=== PATIENT | female | born 1990 | race Hispanic/Latino ===

== ENCOUNTER 2018-08-02 19:08 | Emergency (ER) | payer BC, SELFPAY ==
[2018-08-02 19:45] LABS: Urine Bacteria 20-50 /HPF (<20); Urine Culture Reflex Order REFLEXED; Urine RBC <5 /HPF (NONE SEEN)
[2018-08-02 19:54] LABS: Absolute Lymphocytes (CBC) 2.1 K/uL (0.7-4.9); Absolute Monocytes 0.4 K/uL (0.1-1.3); Absolute Neutrophil 5.7 K/uL (1.8-8.0); Basophils % 0.1 % (0-1.3); Eosinophils % 0.9 % (0-4.4); Hematocrit 38.6 % (36.0-45.0); Lymphocytes % 25.5 % (15.3-44.8); MCH 29.6 pg (27.0-35.0); MCV 86.5 fL (80-100); MPV 8.3 fL (7.6-11.3); Monocytes % 5.1 % (3.3-12.3); RBC Red Blood Cell Count 4.47 M/uL (3.86-4.86)
[2018-08-02 20:25] LABS: BUN Blood Urea Nitrogen 10 mg/dL (7-18); Bicarbonate 25 mmol/L (21-32); Glucose Level 87 mg/dL (74-106); HCG, Quantitative 94809 mIU/mL (1-3); Potassium 3.3 mmol/L (3.5-5.1); Sodium Level 138 mmol/L (136-145)
[2018-08-02 20:26] LABS: Urine Blood 2+ (NEG); Urine Glucose NEGATIVE (NEG); Urine Protein NEGATIVE (NEG); Urine Specific Gravity 1.025 (1.005-1.030); Urine pH 6.5 (5.0-7.0)
--- NOTE | 2018-08-02 20:59 | RAD REPORT ---
EXAM DESCRIPTION: US - Transvaginal OB - 08/02/2018 8:45 pm CLINICAL HISTORY: ABD CRAMPING, COMPARISON: OBSTETRICAL COMPLETE dated 07/27/2015 FINDINGS: A single gestational sac is seen within the uterus. The shape of the sac is within normal limits for gestational age. Within the sac is a single pole with crown-rump length of 18 mm, co rrelating to estimated gestational age of 8 weeks 3 days. Estimated date of delivery is 03/11/2019. Heart rate is 160 BPM.. The placenta is not yet developed due to early gestational age. The maternal adnexa and ovaries are within normal limits. Normal Doppler blood flow was demonstrated to both ovaries. IMPRESSION: Single live early intrauterine gestation with estimated gestational age of 8 weeks 3 day s, KAREN 03/11/2019. No unusual or unexpected finding.
--- NOTE | 2018-08-02 21:04 | ER ---
Nurse's Notes [facility] Name: Salma Kidd Age: 28 yrs Sex: Female : 1990 Arrival Date: 08/02/2018 Time: 19:10 Bed 30 Private MD: Tahir Parekh B Diagnosis: Unspecified infection of urinary tract in Presentation: 08/02 19:16 Presenting complaint: Patient states: lower back pain and light vaginal bleeding since la1 yesterday. Transition of care: patient was not received from another setting of care. Onset of symptoms was August 02, 2018. Risk Assessment: Do you want to hurt yourself or someone else? Patient reports no desire to harm self or others. Initial Sepsis Screen: Does the patient meet any 2 criteria? No. Patient's initial sepsis screen is negative. Does the patient have a suspected source of infection? No. Patient's initial sepsis screen is negative. Care prior to arrival: None. 19:16 Method Of Arrival: Ambulatory la1 19:16 Acuity: TICO 3 la1 Historical: - Allergies: 19:17 No Known Allergies; la1 - PMHx: 19:17 None; la1 - PSHx: 19:17 Hernia repair; la1 - Immunization history:: Adult Immunizations up to date. - Social history:: Smoking status: Patient/guardian denies using tobacco. - Ebola Screening: : No symptoms or risks identified at this time. Screenin:37 Abuse screen: Denies threats or abuse. Denies injuries from another. Nutritional kr2 screening: No deficits noted. Tuberculosis screening: No symptoms or risk factors identified. Fall Risk None identified. Assessment: 19:35 General: Appears in no apparent distress. comfortable, well groomed, well developed, kr2 well nourished, Behavior is calm, cooperative, appropriate for age. Pain: Complains of pain in lower back Pain does not radiate. Pain currently is 4 out of 10 on a pain scale. Quality of pain is described as aching, crampy, Is continuous, Alleviated by rest. Neuro: Level of Consciousness is awake, alert, obeys commands, Oriented to person, place, time, situation, Appropriate for age. Cardiovascular: Capillary refill < 3 seconds in bilateral fingers Patient's skin is warm and dry. Respiratory: Airway is patent Respiratory effort is even, unlabored, Respiratory pattern is regular, symmetrical. GI: Abdomen is flat, non-distended, Bowel sounds present X 4 quads. Abd is soft and non tender X 4 quads. : Urine is clear, Reports vaginal bleeding that is small smears of blood when wiping. Derm: Skin is intact, is healthy with good turgor, Skin is pink, warm \T\ dry. Musculoskeletal: Circulation, motion, and sensation intact. 20:30 Reassessment: Patient appears in no apparent distress at this time. Patient and/or kr2 family updated on plan of care and expected duration. Pain level reassessed. Patient is alert, oriented x 3, equal unlabored respirations, skin warm/dry/pink. Vital Signs: 19:17 BP 114 / 56; Pulse 75; Resp 16; Temp 98.4; Pulse Ox 98% on R/A; Weight 79.38 kg; Height la1 5 ft. 6 in. (167.64 cm); 20:55 BP 112 / 67; Pulse 73; Resp 16; Pulse Ox 100% on R/A; kr2 19:17 Body Mass Index 28.25 (79.38 kg, 167.64 cm) la1 ED Course: 19:10 Patient arrived in ED. al2 19:11 Tahir Parekh MD is Private Physician. al2 19:17 Triage completed. la1 19:18 Arm band placed on right wrist. la1 19:21 Darien Johnson MD is Attending Physician. [facility] 19:21 Nessa Whittaker FNP-C is PHCP. snw 19:24 Nessa Whittaker FNP-C is PHCP. snw 19:34 Lida Ambrocio, BRIANNE is Primary Nurse. kr2 19:38 Patient has correct armband on for positive identification. Placed in gown. Bed in low kr2 position. Call light in reach. Side rails up X 1. Pulse ox on. NIBP on. Door closed. Warm blanket given. Head of bed elevated. 19:40 Inserted saline lock: 20 gauge in right antecubital area, using aseptic technique. jp3 Blood collected. 19:40 Initial lab(s) drawn, by me, sent to lab. Urine collected: clean catch specimen, clear, jp3 matt colored, T\T\S collected, blood band applied to patient. 19:44 Urine Microscopic Only Sent. jp3 19:44 Quantitative Hcg Sent. jp3 19:44 Abo/rh Typing Sent. jp3 19:44 Basic Metabolic Panel Sent. jp3 19:44 CBC with Diff Sent. jp3 20:45 Ultrasound completed. Patient tolerated well. sg3 20:45 US Transvaginal Ob In Process Unspecified. EDMS 21:02 Tahir Parekh MD is Referral Physician. snw 21:06 No provider procedures requiring assistance completed. IV discontinued, intact, kr2 bleeding controlled, No redness/swelling at site. Pressure dressing applied. Administered Medications: 21:02 Drug: Rocephin 1 grams Route: IV; Rate: calculated rate; Site: right antecubital; kr2 21:13 Follow up: Response: No adverse reaction; IV Status: Completed infusion kr2 Outcome: 21:03 Discharge ordered by . snw 21:06 Discharged to home ambulatory, with family. kr2 21:06 Condition: good 21:06 Discharge instructions given to patient, Instructed on discharge instructions, follow up and referral plans. medication usage, Demonstrated understanding of instructions, follow-up care, medications, Prescriptions given X 2. 21:14 Patient left the ED. kr2 Signatures: Dispatcher [employer] EDWI Darien Johnson MD MD cha Therrien, Shelly, ROOM SERVICE BELLHOP-C ROOM SERVICE BELLHOP-Csnw Sha Fleming, BRIANNE RN Lida Hall RN RN andrew2 Anika Greer 3 Mag Jaffe Jacob jp3
--- NOTE | 2018-08-02 21:04 | EDPHYS ---
Physician Documentation [facility] Name: Salma Kidd Age: 28 yrs Sex: Female : 1990 Arrival Date: 08/02/2018 Time: 19:10 Bed 30 Private MD: Tahir Parekh B ED Physician Darien Johnson HPI: 08/02 20:55 This 28 yrs old Female presents to ER via Ambulatory with complaints of snw Vaginal Bleeding, 8 weeks preg. 20:55 The patient presents with vaginal bleeding that is light, spotting. Onset: The snw symptoms/episode began/occurred suddenly. Modifying factors:. Associated signs and symptoms: Pertinent positives: abd cramping. The patient has not experienced similar symptoms in the past. The patient has been recently seen by a physician:. , no prior problems. Historical: - Allergies: 19:17 No Known Allergies; la1 - PMHx: 19:17 None; la1 - PSHx: 19:17 Hernia repair; la1 - Immunization history:: Adult Immunizations up to date. - Social history:: Smoking status: Patient/guardian denies using tobacco. - Ebola Screening: : No symptoms or risks identified at this time. ROS: 20:53 Constitutional: Negative for fever, chills, and weight loss, Eyes: Negative for injury, snw pain, redness, and discharge, ENT: Negative for injury, pain, and discharge, Neck: Negative for injury, pain, and swelling, Cardiovascular: Negative for chest pain, palpitations, and edema, Respiratory: Negative for shortness of breath, cough, wheezing, and pleuritic chest pain, Back: Negative for injury and pain, : Negative for injury, bleeding, discharge, and swelling, MS/Extremity: Negative for injury and deformity, Skin: Negative for injury, rash, and discoloration, Neuro: Negative for headache, weakness, numbness, tingling, and seizure, Psych: Negative for depression, anxiety, suicide ideation, homicidal ideation, and hallucinations. 20:53 Abdomen/GI: Positive for abdominal pain, abdominal cramps, vaginal spotting. Exam: 20:53 Constitutional: This is a well developed, well nourished patient who is awake, alert, snw and in no acute distress. Head/Face: Normocephalic, atraumatic. Eyes: Pupils equal round and reactive to light, extra-ocular motions intact. Lids and lashes normal. Conjunctiva and sclera are non-icteric and not injected. Cornea within normal limits. Periorbital areas with no swelling, redness, or edema. ENT: Nares patent. No nasal discharge, no septal abnormalities noted. Tympanic membranes are normal and external auditory canals are clear. Oropharynx with no redness, swelling, or masses, exudates, or evidence of obstruction, uvula midline. Mucous membranes moist. Neck: Trachea midline, no thyromegaly or masses palpated, and no cervical lymphadenopathy. Supple, full range of motion without nuchal rigidity, or vertebral point tenderness. No Meningismus. Chest/axilla: Normal chest wall appearance and motion. Nontender with no deformity. No lesions are appreciated. Cardiovascular: Regular rate and rhythm with a normal S1 and S2. No gallops, murmurs, or rubs. Normal PMI, no JVD. No pulse deficits. Respiratory: Lungs have equal breath sounds bilaterally, clear to auscultation and percussion. No rales, rhonchi or wheezes noted. No increased work of breathing, no retractions or nasal flaring. Abdomen/GI: Soft, non-tender, with normal bowel sounds. No distension or tympany. No guarding or rebound. No evidence of tenderness throughout. Back: No spinal tenderness. No costovertebral tenderness. Full range of motion. Skin: Warm, dry with normal turgor. Normal color with no rashes, no lesions, and no evidence of cellulitis. MS/ Extremity: Pulses equal, no cyanosis. Neurovascular intact. Full, normal range of motion. Neuro: Awake and alert, GCS 15, oriented to person, place, time, and situation. Cranial nerves II-XII grossly intact. Motor strength 5/5 in all extremities. Sensory grossly intact. Cerebellar exam normal. Normal gait. Psych: Awake, alert, with orientation to person, place and time. Behavior, mood, and affect are within normal limits. Vital Signs: 19:17 BP 114 / 56; Pulse 75; Resp 16; Temp 98.4; Pulse Ox 98% on R/A; Weight 79.38 kg; Height la1 5 ft. 6 in. (167.64 cm); 20:55 BP 112 / 67; Pulse 73; Resp 16; Pulse Ox 100% on R/A; kr2 19:17 Body Mass Index 28.25 (79.38 kg, 167.64 cm) la1 MDM: 19:21 Patient medically screened. manuel 21:04 Data reviewed: vital signs, nurses notes. Data interpreted: Pulse oximetry: on room air snw is 100 %. Counseling: I had a detailed discussion with the patient and/or guardian regarding: the historical points, exam findings, and any diagnostic results supporting the discharge/admit diagnosis, lab results, radiology results, the need for outpatient follow up, to return to the emergency department if symptoms worsen or persist or if there are any questions or concerns that arise at home. Special discussion: Based on the history and exam findings, there is no indication for further emergent testing or inpatient evaluation. I discussed with the patient/guardian the need to see the OB Gyne specialist for further evaluation of the symptoms. I discussed with the patient/guardian the need to see the primary care provider for further evaluation of the symptoms. 08/02 19:14 Order name: Quantitative Hcg; Complete Time: 20:27 kb 08/02 19:14 Order name: Abo/rh Typing; Complete Time: 20:17 kb 08/02 19:14 Order name: Basic Metabolic Panel; Complete Time: 20:27 kb 08/02 19:14 Order name: CBC with Diff; Complete Time: 20:17 kb 08/02 19:24 Order name: Urine Microscopic Only; Complete Time: 19:49 snw 08/02 19:34 Order name: Urine Dipstick--Ancillary (enter results); Complete Time: 20:27 mw2 08/02 19:14 Order name: Urine Test (obtain specimen); Complete Time: 19:33 kb 08/02 19:14 Order name: IV Saline Lock; Complete Time: 19:33 kb 08/02 19:14 Order name: Labs collected and sent; Complete Time: 19:33 kb 08/02 19:14 Order name: NPO; Complete Time: 19:33 kb 08/02 19:27 Order name: US Transvaginal Ob; Complete Time: 21:00 snw 08/02 19:34 Order name: Urine --Ancillary (enter results); Complete Time: 20:27 mw2 08/02 19:47 Order name: Urine Culture EDMS 08/02 19:14 Order name: Urine Dipstick-Ancillary (obtain specimen); Complete Time: 19:33 kb Administered Medications: 21:02 Drug: Rocephin 1 grams Route: IV; Rate: calculated rate; Site: right antecubital; kr2 21:13 Follow up: Response: No adverse reaction; IV Status: Completed infusion kr2 Disposition: 08/03 07:01 Co-signature as Attending Physician, Darien Johnson MD I agree with the assessment and manuel plan of care. Disposition: 08/02/18 21:03 Discharged to Home. Impression: Unspecified infection of urinary tract in . - Condition is Stable. - Discharge Instructions: and Urinary Tract Infection. - Prescriptions for Augmentin 875- 125 mg Oral Tablet - take 1 tablet by ORAL route every 12 hours for 10 days; 20 tablet. Vitamin 27- 0.8 mg Oral Tablet - take 1 tablet by ORAL route once daily; 30 tablet. - Medication Reconciliation Form, Thank You Letter, Antibiotic Education, Prescription Opioid Use form. - Follow up: Tahir Parekh MD; When: 2 - 3 days; Reason: Recheck today's complaints, Continuance of care, Re-evaluation by your physician. Follow up: Emergency Department; When: As needed; Reason: Worsening of condition. Signatures: Dispatcher [employer] Addie Stockton, MAYE-C MAYE-Darien Neves MD MD cha Therrien, Shelly, FNP-C SUPERVISOR [employer] TEXTILE-Sha Guzman RN RN la1 Lida Ambrocio RN RN kr2 Corrections: (The following items were deleted from the chart) 08/02 21:14 21:03 08/02/2018 21:03 Discharged to Home. Impression: Unspecified infection of urinary kr2 tract in . Condition is Stable. Forms are Medication Reconciliation Form, Thank You Letter, Antibiotic Education, Prescription Opioid Use. Follow up: Tahir Parekh; When: 2 - 3 days; Reason: Recheck today's complaints, Continuance of care, Re-evaluation by your physician. Follow up: Emergency Department; When: As needed; Reason: Worsening of condition. snw
[2018-08-02] MEDS ORDERED: CEFTRIAXONE/SWI 1gm 1 GM/10 ML SYR ONE (21:05)
[2018-08-02 21:35] VITALS: TEMP 98.4
[2018-08-02 21:36] VITALS: BP 112/67; O2SAT 100
== END 2018-08-02 21:14 | disposition home or self-care (01) ==
LOC: ER 19:08
DX: O23.41 Unspecified infection of urinary tract in pregnancy, first trimester (principal); Z3A.08 8 weeks gestation of pregnancy
CPT/HCPCS: 36415; 76817; 80048; 81003; 81015; 81025; 84702; 85025; 86900; 86901; 87086; 87088; 96374; 99284; J0696

== ENCOUNTER 2019-03-04 01:54 | Inpatient (IN) | payer BC ==
[2019-03-04] MEDS ORDERED: BUTORPHANOL 1 MG/ML INJ IV PRN (04:32)
[2019-03-04] MEDS ORDERED: PROMETHAZINE 25 MG/ML VIAL IM PRN (04:32)
[2019-03-04] MEDS ORDERED: MEPERIDINE HCL 25 MG/0.5 ML IV PRN (04:32)
[2019-03-04] MEDS ORDERED: METHYLERGONOVINE 0.2MG/ML AMP IM PRN (04:32)
[2019-03-04] MEDS ORDERED: CARBOPROST TROME 250 MCG/ML IM PRN (04:32)
[2019-03-04] MEDS ORDERED: Ringers Lactate 1,000 ML IV PRN (04:32)
[2019-03-04 04:50] LABS: RPR Titer ND
[2019-03-04 04:53] LABS: Urine Appearance CLEAR; Urine Bilirubin NEGATIVE (NEG); Urine Blood NEGATIVE (NEG); Urine Color YELLOW; Urine Glucose NEGATIVE (NEG); Urine Protein NEGATIVE (NEG); Urine Urobilinogen 0.2 mg/dL (0.2-1.0)
[2019-03-04 04:54] LABS: Absolute Lymphocytes (CBC) 1.5 K/uL (0.7-4.9); Basophils % 0.3 % (0-1.3); Eosinophils % 0.7 % (0-4.4); Hematocrit 34.5 % (36.0-45.0); Lymphocytes % 21.9 % (15.3-44.8); Monocytes % 5.9 % (3.3-12.3); RBC Red Blood Cell Count 4.27 M/uL (3.86-4.86); Urine Microscopic Reflex ORDER UMIC
[2019-03-04] MEDS ORDERED: OXYTOCIN/LR 20 UNIT/1,000 ML BAG IV SCH ×2 (05:00→09:00)
[2019-03-04] MEDS ORDERED: Ringers Lactate 1,000 ML IV SCH (05:00)
[2019-03-04 05:31] LABS: Urine Bacteria 20-50 /HPF (<20); Urine Culture Reflex Order REFLEXED; Urine RBC NONE SEEN /HPF (NONE SEEN)
[2019-03-04 05:42] VITALS: BMI 31.4
[2019-03-04] MEDS ORDERED: LIDOCAINE 1% MPF 30 ML VIAL ONE (08:45)
[2019-03-04] MEDS ORDERED: Oxycodone HCl/Acetaminophen 1 TAB TAB PO PRN (08:47)
[2019-03-04] MEDS ORDERED: ACETAMINOPHEN 500 MG TAB PO PRN (08:47)
[2019-03-04] MEDS ORDERED: DOCUSATE NA/SENNA CONC 1 TAB PO PRN (08:47)
[2019-03-04] MEDS ORDERED: DIPHENHYDRAMINE 25 MG TAB/CAP PO PRN (08:47)
[2019-03-04] MEDS ORDERED: BISACODYL 10 MG RECTAL SUPP RECT PRN (08:47)
[2019-03-04] MEDS: METHYLERGONOVINE 0.2 MG TAB PO PRN ×2 (11:00→15:30)
[2019-03-04] MEDS: Oxycodone HCl/Acetaminophen 1 TAB TAB PO PRN ×2 (11:00→16:00)
[2019-03-04] MEDS: IBUPROFEN 200 MG TAB PO PRN ×2 (13:30→22:46)
[2019-03-04 14:41] LABS: RPR (Rapid Plasma Reagin) NON-REACT (NON-REACT)
--- NOTE | 2019-03-04 14:47 | OP ---
Surgeon: Tahir Parekh MD This is a 28-year-old, 3, para 2. History of macrosomia, mild shoulder dystocia with l ast . Rh positive. Immune to Rubella. Negative beta strep screen. Two and a half to 3 cm on admission. Rupture of membranes at 3.5 cm. Clear fluid. The patient went rapidly to complete w ithin an hour and a half or less, was complete and on the perineum, second stage of 10-15 minutes. S pontaneous vaginal delivery of an estimated 9-pound plus male infant. Shoulder type cord. Apgars 8 and 9. Second-degree midline laceration, repaired with 2-0 chromic. Schultze delivery of the placen ta, which was inspected and noted be intact and normal. Mild uterine hypotonus, 0.2 mg of Methergine IM, IV drip Pitocin, massage. Estimated blood loss at this point, 400-450 cc. The patient had 1 mg of Stadol and 25 mg of Phenergan during the labor. Tolerated all procedures well. Final Diagnoses: Term uterine , vaginal delivery, mild uterine hypotonus. CONSTANTINEC/MODL Voice ID: [id number] Report ID: [id number]
[2019-03-05] MEDS: Oxycodone HCl/Acetaminophen 1 TAB TAB PO PRN (06:30)
--- NOTE | 2019-03-05 08:00 | PREOPHP ---
Date of Admission: 03/04/2019 This is a 28-year-old, 3, para 2, history of macrosomia, with the last 9 pound 15 o unce child with mild shoulder dystocia. This has been discussed with the patient and numerou s times during the . They wish to proceed with vaginal delivery. She is Rh positive, immun e to Rubella. Negative beta strep screen. She is now 3.5 cm, 50% to 60% effaced, vertex, but still posterior, keren regularly. Baby looks good. Rupture of membranes, clear fluid. Labor talk g iven. Anticipate more rapid progress once she gets to about 5 cm. Pros and cons of epidural anesthe carmita have been discussed before. Hopefully, she can go natural so that we can have all the pushing po wer that we can generate at the time of delivery, but if she wants an epidural we will comply. ELE/DEANDRE Voice ID: [id number]
[2019-03-05 11:59] VITALS: BP 116/72; TEMP 96.7
--- NOTE | 2019-03-05 13:39 | DS ---
A 28-year-old 3, para 2, at 39 weeks. History of macrosomia with last baby 9 pounds 15 ounce s. Admitted for labor induction. At 3 cm rupture of membranes was performed. The patient had 1 mg of Stadol and 25 mg of Phenergan IM. Stadol IV. Within an hour and 20 minutes, she was complete and on the perineum. Delivered spontaneously and easily of an 8-pound and 14-ounce male , shoulde r type of cord. Apgars 8 and 9. Small midline second-degree laceration repaired with 2-0 chromic un joleen local infiltration. Schultze delivery of the placenta, which was inspected and noted to be intac t and normal. Mild uterine hypotonus. IV drip Pitocin, massage and 0.2 mg of Methergine IM. Estima silvano blood loss 400-450 cc. Rh positive, immune to Rubella. Negative beta strep screen. ; afebrile, ambulating and voiding. Lochia is normal. She is having cramping of course when she is b reast feeding. Full instructions given. To report any temperature elevation of 100 degrees or more, severe pain, heavy bleeding, or any other type of abnormalities. They need to talk to the pediatric harry this morning and after they are cleared for dismissal they can go. I have given her prescription for tramadol, although she may elect to take Motrin instead. Final Diagnoses: Term intrauterine , 39 weeks. Vaginal delivery. Mild uterine hypotonus. ELE/DEANDRE Voice ID: [id number] Report ID: [id number]
[2019-03-07 04:36] LABS: HBsAG Nonreactive (Nonreactive)
== END 2019-03-05 13:45 | disposition home or self-care (01) | DRG 807 ==
LOC: 2ND-WC 04:10
PROVIDERS: ADMIT Specialist; ATTEND Specialist
PROC: 10E0XZZ Delivery of Products of Conception, External Approach (ICD-10-PCS; principal; 2019-03-04)
PROC: 0KQM0ZZ Repair Perineum Muscle, Open Approach (ICD-10-PCS; 2019-03-04)
PROC: 3E033VJ Introduction of Other Hormone into Peripheral Vein, Percutaneous Approach (ICD-10-PCS; 2019-03-04)
DX: O36.63X0 Maternal care for excessive fetal growth, third trimester, not applicable or unspecified (principal); Z37.0 Single live birth; Z3A.39 39 weeks gestation of pregnancy; O70.1 Second degree perineal laceration during delivery; O62.2 Other uterine inertia
CPT/HCPCS: 36415; 81003; 81015; 85025; 86592; 86901; 87086; 87088; 87340; J0595; J2175; J2210; J2550; J2590

== ENCOUNTER 2020-07-29 02:31 | Emergency (ER) | payer BC ==
[2020-07-29] MEDS ORDERED: FAMOTIDINE 20 MG/2 ML VIAL IV ONE (03:08)
[2020-07-29] MEDS ORDERED: MORPHINE 2 MG/ML SYR ONE (03:08)
[2020-07-29] MEDS ORDERED: ONDANSETRON 4 MG/2 ML VIAL ONE (03:08)
[2020-07-29 03:20] LABS: Absolute Lymphocytes (CBC) 2.7 K/uL (0.7-4.9); Basophils % 0.3 % (0-1.3); Hematocrit 41.7 % (36.0-45.0); Lymphocytes % 30.9 % (15.3-44.8); MPV 8.5 fL (7.6-11.3); RBC Red Blood Cell Count 4.67 M/uL (3.86-4.86)
[2020-07-29 03:24] LABS: Urine Blood 2+ (NEG); Urine Glucose NEGATIVE (NEG); Urine Protein NEGATIVE (NEG); Urine Specific Gravity 1.025 (1.005-1.030)
[2020-07-29 03:34] LABS: ALT/SGPT 40 U/L (12-78); AST/SGOT 43 U/L (15-37); Albumin 4.4 g/dL (3.4-5.0); Alkaline Phosphatase 90 U/L (45-117); BUN Blood Urea Nitrogen 14 mg/dL (7-18); Bicarbonate 31 mmol/L (21-32); Bilirubin Direct 0.2 mg/dL (0-0.2); Bilirubin Total 0.5 mg/dL (0.2-1.0); Glucose Level 102 mg/dL (74-106); Lipase 75 U/L (73-393); Magnesium 2.3 mg/dL (1.8-2.4); NT PRO-BNP 14 pg/mL (<125); Potassium 3.2 mmol/L (3.5-5.1); Protein, Total 8.7 g/dL (6.4-8.2); Sodium Level 142 mmol/L (136-145); Troponin (Emerg Dept Use Only) < 0.02 ng/mL (0.0-0.045)
--- NOTE | 2020-07-29 08:30 | ER ---
Nurse's Notes [facility] Name: Salma Kidd Age: 30 yrs Sex: Female : 1990 Arrival Date: 07/29/2020 Time: 02:33 Bed 5 Private MD: Diagnosis: Upper abdominal pain, unspecified Presentation: 07/29 02:41 Chief complaint: Patient states: Reports she started having epigastric pain that wraps ea around and goes to her back, reports it started around 2 AM. Coronavirus screen: At this time, the client does not indicate any symptoms associated with coronavirus-19. Ebola Screen: No symptoms or risks identified at this time. Initial Sepsis Screen: Does the patient meet any 2 criteria? No. Patient's initial sepsis screen is negative. Does the patient have a suspected source of infection? No. Patient's initial sepsis screen is negative. Risk Assessment: Do you want to hurt yourself or someone else? Patient reports no desire to harm self or others. Onset of symptoms was July 29, 2020. 02:41 Method Of Arrival: Ambulatory ea 02:41 Acuity: TICO 3 ea Triage Assessment: 02:44 General: Appears uncomfortable, Behavior is appropriate for age. Pain: Complains of ea pain in epigastric area Pain radiates to back. Neuro: Level of Consciousness is awake, alert, obeys commands, Oriented to person, place, time, situation. Historical: - Allergies: 02:44 No Known Allergies; ea - Home Meds: 02:44 None [Active]; ea - PMHx: 02:44 None; ea - PSHx: 02:44 Hernia repair; ea - Immunization history:: Adult Immunizations up to date. - Social history:: Smoking status: Patient denies any tobacco usage or history of. Screenin:42 Abuse screen: Denies threats or abuse. Denies injuries from another. Nutritional mg2 screening: No deficits noted. Tuberculosis screening: No symptoms or risk factors identified. Fall Risk IV access (20 points). Assessment: 02:43 General: Appears in no apparent distress. comfortable, Behavior is calm, cooperative. mg2 Pain: Complains of pain in epigastric Pain radiates to back Pain began gradually. Neuro: Level of Consciousness is awake, alert, obeys commands, Oriented to person, place, time, situation. Cardiovascular: Capillary refill < 3 seconds Patient's skin is warm and dry. Respiratory: Airway is patent Respiratory effort is even, unlabored, Respiratory pattern is regular, symmetrical. GI: Reports epigastric pain. : No signs and/or symptoms were reported regarding the genitourinary system. EENT: No signs and/or symptoms were reported regarding the EENT system. Derm: Skin is intact, is healthy with good turgor, Skin is pink, warm \T\ dry. normal. Musculoskeletal: Circulation, motion, and sensation intact. Capillary refill < 3 seconds. 03:30 Reassessment: Patient and/or family updated on plan of care and expected duration. Pain ea level reassessed. Patient is alert, oriented x 3, equal unlabored respirations, skin warm/dry/pink. 04:44 Reassessment: Patient appears in no apparent distress at this time. Patient and/or mg2 family updated on plan of care and expected duration. Pain level reassessed. Patient is alert, oriented x 3, equal unlabored respirations, skin warm/dry/pink. 05:50 Reassessment: Patient and/or family updated on plan of care and expected duration. Pain ea level reassessed. Patient is alert, oriented x 3, equal unlabored respirations, skin warm/dry/pink. 06:12 Reassessment: Patient and/or family updated on plan of care and expected duration. Pain ea level reassessed. Patient is alert, oriented x 3, equal unlabored respirations, skin warm/dry/pink. Awaiting on CT results. 07:00 Reassessment: RECD REPORT FROM MARIA ANTONIA DECKER. 30YO HF P/W CP AND SOB. ALL CURRENT ORDERS bp COMPLETED. REPEAT TROP IN PROCESS FOR DISPO. 08:35 Reassessment: U/S UNAVAILABLE. PT D/C HOME AMBULATORY, DX WITH NONSPECIFIC ABDOMINAL bp PAIN. Vital Signs: 02:42 BP 122 / 64; Pulse 71; Resp 18; Temp 97.4; Pulse Ox 100% on R/A; Weight 78.02 kg; mg2 Height 5 ft. 5 in. (165.10 cm); 03:45 BP 127 / 80; Pulse 65; Resp 18; Pulse Ox 100% on R/A; mg2 04:45 BP 110 / 54; Pulse 71; Resp 18; Pulse Ox 100% on R/A; mg2 06:01 BP 105 / 53; Pulse 63; Resp 18; Pulse Ox 100% on R/A; mg2 07:00 BP 111 / 62; Pulse 59; Resp 18; Pulse Ox 99% ; bp 08:35 BP 106 / 57; Pulse 60; Resp 19; Temp 98; Pulse Ox 99% ; bp 02:42 Body Mass Index 28.62 (78.02 kg, 165.10 cm) mg2 ED Course: 02:33 Patient arrived in ED. bp1 02:35 Brain Morgan MD is Attending Physician. mh7 02:41 Maria Antonia Dorman, RN is Primary Nurse. ea 02:42 Patient has correct armband on for positive identification. senior informatica developer on. Pulse mg2 ox on. NIBP on. Door closed. Warm blanket given. 02:43 Triage completed. ea 02:43 Arm band placed on right wrist. Patient placed in an exam room, on a stretcher, on ea pulse oximetry. 02:44 Patient maintains SpO2 saturation greater than 95% on room air. ea 02:48 Inserted saline lock: 20 gauge in right antecubital area, using aseptic technique. oe Blood collected. 03:07 XRAY Chest (1 view) In Process Unspecified. EDMS 03:09 No provider procedures requiring assistance completed. mg2 04:30 CT Chest For PE Angio In Process Unspecified. EDMS 04:30 CT Abd/Pelvis - IV Contrast Only In Process Unspecified. EDMS 07:05 Primary Nurse role handed off by Maria Antonia Dorman, BRIANNE bp 07:05 Michael Wilhelm, BRIANNE is Primary Nurse. bp 07:38 Attending Physician role handed off by Brain Morgan MD rn 07:38 Dayron Cao MD is Attending Physician. rn 08:29 Arnol Harmon MD is Referral Physician. rn 08:36 IV discontinued, intact, bleeding controlled, No redness/swelling at site. Pressure bp dressing applied. Administered Medications: 03:08 Drug: Zofran (Ondansetron) 4 mg Route: IVP; Site: right antecubital; mg2 04:44 Follow up: Response: No adverse reaction mg2 03:08 Drug: Pepcid 20 mg Route: IVP; Site: right antecubital; mg2 04:44 Follow up: Response: No adverse reaction mg2 03:09 Drug: morphine 2 mg Route: IVP; Site: right antecubital; mg2 04:44 Follow up: Response: No adverse reaction; Marked relief of symptoms mg2 08:30 Drug: GI Cocktail without - (Maalox Suspension 30 ml, Lidocaine Liquid 2 % 15 bp ml) Route: PO; 08:37 Follow up: Response: No adverse reaction; Pain is decreased bp Outcome: 08:29 Discharge ordered by . rn 08:36 Discharged to home ambulatory. bp 08:36 Condition: stable 08:36 Discharge instructions given to patient, Instructed on discharge instructions, follow up and referral plans. medication usage, Demonstrated understanding of instructions, follow-up care, medications, Prescriptions given X 2. 08:51 Patient left the ED. bp Signatures: Dispatcher [employer] EDMS Dayron Cao MD MD rn Espinosa, [place] oe Antunez, Elena, RN RN ea Peltier, Brian, RN RN bp Gardose, Michele, RN RN mg2 Paniauga, Brittany bp1 Holmes, Maurice, MD MD mh7
--- NOTE | 2020-07-29 08:30 | EDPHYS ---
Physician Documentation [facility] Name: Salma Kidd Age: 30 yrs Sex: Female : 1990 Arrival Date: 07/29/2020 Time: 02:33 Bed 5 Private MD: ED Physician Dayron Cao HPI: 07/29 02:51 This 30 yrs old Female presents to ER via Ambulatory with complaints of Chest mh7 Pain, Breathing Difficulty. 02:51 The patient or guardian reports chest pain that is located primarily in the epigastric mh7 area. The pain radiates to back. Associated signs and symptoms: Pertinent positives: nausea, shortness of breath, Pertinent negatives:. 02:52 Associated signs and symptoms: Pertinent negatives: cough, diaphoresis, dizziness, mh7 headache, lower extremity pain, lower extremity swelling, lightheadedness, near syncope, palpitations, recent travel, syncope, vomiting. The chest pain is described as a pressure. Duration: The patient or guardian reports a single episode, that is still ongoing, but improving. Modifying factors: The symptoms are alleviated by nothing. the symptoms are aggravated by nothing. Severity of pain: At its worst the pain was moderate today, in the emergency department the pain has improved moderately. Historical: - Allergies: 02:44 No Known Allergies; ea - Home Meds: 02:44 None [Active]; ea - PMHx: 02:44 None; ea - PSHx: 02:44 Hernia repair; ea - Immunization history:: Adult Immunizations up to date. - Social history:: Smoking status: Patient denies any tobacco usage or history of. ROS: 02:52 Constitutional: Negative for fever, chills, and weight loss, Eyes: Negative for injury, mh7 pain, redness, and discharge, ENT: Negative for injury, pain, and discharge, Neck: Negative for injury, pain, and swelling, : Negative for injury, bleeding, discharge, and swelling, MS/Extremity: Negative for injury and deformity, Skin: Negative for injury, rash, and discoloration, Neuro: Negative for headache, weakness, numbness, tingling, and seizure, Psych: Negative for depression, anxiety, suicide ideation, homicidal ideation, and hallucinations, Allergy/Immunology: Negative for hives, rash, and allergies, Endocrine: Negative for neck swelling, polydipsia, polyuria, polyphagia, and marked weight changes, Hematologic/Lymphatic: Negative for swollen nodes, abnormal bleeding, and unusual bruising. Exam: 02:52 Head/Face: Normocephalic, atraumatic. Eyes: Pupils equal round and reactive to light, mh7 extra-ocular motions intact. Lids and lashes normal. Conjunctiva and sclera are non-icteric and not injected. Cornea within normal limits. Periorbital areas with no swelling, redness, or edema. Neck: Trachea midline, no thyromegaly or masses palpated, and no cervical lymphadenopathy. Supple, full range of motion without nuchal rigidity, or vertebral point tenderness. No Meningismus. Chest/axilla: Normal chest wall appearance and motion. Nontender with no deformity. No lesions are appreciated. Cardiovascular: Regular rate and rhythm with a normal S1 and S2. No gallops, murmurs, or rubs. Normal PMI, no JVD. No pulse deficits. 02:52 Back: No spinal tenderness. No costovertebral tenderness. Full range of motion. Skin: Warm, dry with normal turgor. Normal color with no rashes, no lesions, and no evidence of cellulitis. MS/ Extremity: Pulses equal, no cyanosis. Neurovascular intact. Full, normal range of motion. Neuro: Awake and alert, GCS 15, oriented to person, place, time, and situation. Cranial nerves II-XII grossly intact. Motor strength 5/5 in all extremities. Sensory grossly intact. Cerebellar exam normal. Normal gait. Psych: Awake, alert, with orientation to person, place and time. Behavior, mood, and affect are within normal limits. 02:52 Constitutional: The patient appears in no acute distress, alert, awake, uncomfortable. 02:52 Abdomen/GI: Inspection: abdomen appears normal, obese Bowel sounds: normal, in all quadrants, Palpation: moderate abdominal tenderness, in the epigastric area, Rectal exam: the exam is deferred, because of patient request, Indicators: McBurney's point is not tender, Cordero's sign is negative, Rovsing's sign is negative, Obturator sign is negative, Psoas sign is negative, Liver: no appreciated palpable abnormalities, Hernia: not appreciated. Vital Signs: 02:42 BP 122 / 64; Pulse 71; Resp 18; Temp 97.4; Pulse Ox 100% on R/A; Weight 78.02 kg; mg2 Height 5 ft. 5 in. (165.10 cm); 03:45 BP 127 / 80; Pulse 65; Resp 18; Pulse Ox 100% on R/A; mg2 04:45 BP 110 / 54; Pulse 71; Resp 18; Pulse Ox 100% on R/A; mg2 06:01 BP 105 / 53; Pulse 63; Resp 18; Pulse Ox 100% on R/A; mg2 07:00 BP 111 / 62; Pulse 59; Resp 18; Pulse Ox 99% ; bp 08:35 BP 106 / 57; Pulse 60; Resp 19; Temp 98; Pulse Ox 99% ; bp 02:42 Body Mass Index 28.62 (78.02 kg, 165.10 cm) mg2 MDM: 02:49 Patient medically screened. [facility] 07:33 ED course: Signed out to me by Dr. Morgan, pending u/s gallbadder, CT chest shows rn suspicion for cholecystitis, CT abdomen did not, bloodwork unremarkable. . 08:03 Differential diagnosis: cholecystitis, Cholelithiasis gastritis, gastroesophageal rn reflux disease (GERD), pancreatitis, peptic ulcer disease. Data reviewed: vital signs, nurses notes, lab test result(s), radiologic studies, CT scan. ED course: called Dr. 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 Dr. De La Rosa believes there is some gallbladder wall thickening, no PCF, unable to visualized stones on CT. Pain improved, paging Dr. Harmon for input. . 08:27 Counseling: I had a detailed discussion with the patient and/or guardian regarding: the rn historical points, exam findings, and any diagnostic results supporting the discharge/admit diagnosis, lab results, radiology results, the need for outpatient follow up, to return to the emergency department if symptoms worsen or persist or if there are any questions or concerns that arise at home. 08:27 Response to treatment: the patient's symptoms have markedly improved after treatment, rn and as a result, I will discharge patient. ED course: Discussed case with Wilfred Harmon, recommends GI cocktail, dc home, and f/u on Friday, he will order outpt u/s and reeval.. 08:27 ED course: Pt without any pain, no nausea. Resting comfortably.. rn 07/29 02:50 Order name: Basic Metabolic Panel; Complete Time: 03:50 [facility] 07/29 02:50 Order name: CBC with Diff; Complete Time: 03:50 [facility] 07/29 02:50 Order name: LFT's; Complete Time: 03:50 [facility] 07/29 02:50 Order name: Magnesium; Complete Time: 03:50 [facility] 07/29 02:50 Order name: NT PRO-BNP; Complete Time: 03:50 [facility] 07/29 02:50 Order name: PT-INR; Complete Time: 03:50 [facility] 07/29 02:50 Order name: Troponin (emerg Dept Use Only); Complete Time: 03:50 [facility] 07/29 02:50 Order name: XRAY Chest (1 view) [facility] 07/29 02:50 Order name: Lipase; Complete Time: 03:50 [facility] 07/29 03:13 Order name: Urine --Ancillary (enter results); Complete Time: 03:50 [facility] 07/29 03:13 Order name: Urine Dipstick--Ancillary (enter results); Complete Time: 03:50 [facility] 07/29 03:51 Order name: CT Chest For PE Angio [facility] 07/29 03:51 Order name: CT Abd/Pelvis - IV Contrast Only [facility] 07/29 06:02 Order name: Troponin (emerg Dept Use Only); Complete Time: 07:09 07/29 02:50 Order name: EKG; Complete Time: 02:51 [facility] 07/29 02:50 Order name: Cardiac monitoring; Complete Time: 02:52 [facility] 07/29 02:50 Order name: EKG - Nurse/Tech; Complete Time: 02:52 [facility] 07/29 02:50 Order name: IV Saline Lock; Complete Time: 02:52 [facility] 07/29 02:50 Order name: Labs collected and sent; Complete Time: 02:52 [facility] 07/29 02:50 Order name: O2 Per Protocol; Complete Time: 02:52 [facility] 07/29 02:50 Order name: O2 Sat Monitoring; Complete Time: 02:53 [facility] 07/29 02:50 Order name: Urine Dipstick-Ancillary (obtain specimen); Complete Time: 03:09 [facility] 07/29 02:50 Order name: Urine Test (obtain specimen); Complete Time: 03:09 7 Administered Medications: 03:08 Drug: Zofran (Ondansetron) 4 mg Route: IVP; Site: right antecubital; mg2 04:44 Follow up: Response: No adverse reaction mg2 03:08 Drug: Pepcid 20 mg Route: IVP; Site: right antecubital; mg2 04:44 Follow up: Response: No adverse reaction mg2 03:09 Drug: morphine 2 mg Route: IVP; Site: right antecubital; mg2 04:44 Follow up: Response: No adverse reaction; Marked relief of symptoms mg2 08:30 Drug: GI Cocktail without - (Maalox Suspension 30 ml, Lidocaine Liquid 2 % 15 bp ml) Route: PO; 08:37 Follow up: Response: No adverse reaction; Pain is decreased bp Disposition: 07/29/20 08:29 Discharged to Home. Impression: Upper abdominal pain, unspecified. - Condition is Stable. - Discharge Instructions: Abdominal Pain, Adult. - Prescriptions for Zofran ODT 4 mg Oral tablet,disintegrating - place 1 tablet by TRANSLINGUAL route every 8 hours As needed; 20 tablet. Tylenol- Codeine #3 300-30 mg Oral Tablet - take 1 tablet by ORAL route every 6 hours As needed; 15 tablet. - Medication Reconciliation Form, Thank You Letter, Antibiotic Education, Prescription Opioid Use form. - Follow up: Arnol Harmon MD; When: 2 - 3 days; Reason: Recheck today's complaints, Re-evaluation by your physician. - Problem is new. - Symptoms have improved. Signatures: Dispatcher [employer] EDWV Dayron Cao MD MD rn Antunez, Elena RN Michael Kwon ea, RN RN bp Gardose, Michele, BRIANNE DECKER mg2 Brain Morgan MD MD [facility] Corrections: (The following items were deleted from the chart) 08:51 08:29 07/29/2020 08:29 Discharged to Home. Impression: Upper abdominal pain, bp unspecified. Condition is Stable. Forms are Medication Reconciliation Form, Thank You Letter, Antibiotic Education, Prescription Opioid Use. Follow up: Dr. Arnol Harmon; When: 2 - 3 days; Reason: Recheck today's complaints, Re-evaluation by your physician. Problem is new. Symptoms have improved. rn
[2020-07-29] MEDS ORDERED: LIDOCAINE VISCOUS 2% SOLN 15 ML UDC ONE (08:42)
[2020-07-29] MEDS ORDERED: MAGNES/ALUMIN/SIMET 30ML UCUP ONE (08:42)
[2020-07-29 09:29] VITALS: O2SAT 99
--- NOTE | 2020-07-29 09:29 | RAD REPORT ---
EXAM DESCRIPTION: RAD - Chest Single View - 07/29/2020 3:08 am CLINICAL HISTORY: CHEST PAIN COMPARISON: None TECHNIQUE: AP portable chest image was obtained 07/29/2020 3:08 am . FINDINGS: Lungs are clear. Heart and vasculature are normal. No measurable pleural effusion and no p neumothorax. No acute bony abnormality seen. No acute aortic findings suspected. IMPRESSION: No acute cardiopulmonary process.
[2020-07-29 09:30] VITALS: BP 106/57; TEMP 98
--- NOTE | 2020-07-29 18:27 | RAD REPORT ---
EXAM DESCRIPTION: CT - Chest For Pe Angio - 07/29/2020 5:40 am CLINICAL HISTORY: CHEST PAIN COMPARISON: None. TECHNIQUE: Axial CT imaging of the thorax utilizing intravenous contrast. Reformatted multiplanar im ages obtained including reconstructed maximum intensity projection images. This exam was performed according to our departmental dose-optimization program which includes automa silvano exposure control, adjustment of the mA and/or kV according to patient size and/or use of iterativ e reconstruction technique FINDINGS: PULMONARY ARTERIES: Normal caliber main pulmonary artery. No filling defect within the pul monary arteries. HEART/GREAT VESSELS: Heart is normal in size. No pericardial fluid. Normal caliber thoracic aorta. No rmal branch pattern of the arch vessels. MEDIASTINUM/PRATEEK: No mediastinal or hilar adenopathy. Normal central airways. Normal esophagus. LUNGS/PLEURA: Lungs are clear. No pleural fluid. Normal lung volumes. No pulmonary edema. CHEST WALL/SOFT TISSUES: Unremarkable thyroid. No axillary adenopathy. Sternum is intact. Unremarkabl e thoracic spine. UPPER ABDOMEN: Unremarkable liver. Gallbladder wall appears slightly thickened. No stone seen. Normal spleen, pancreas, adrenal glands, and kidneys. The stomach and imaged small bowel and large bowel lo ops appear normal. IMPRESSION: 1. No pulmonary embolism. 2. Mild hepatomegaly. 3. Gallbladder wall appears slightly thickened suspicious for acute cholecystitis. Correlate with rig ht upper quadrant exam. 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 The interpreting radiologist is fully responsible for the content of the report.
--- NOTE | 2020-07-29 18:29 | RAD REPORT ---
EXAM DESCRIPTION: CT - Abdomen Pelvis W Contrast - 07/29/2020 5:41 am ADDENDUM: There is discrepancy or discordance in reporting on the gallbladder between the CT chest r eport and the CT abdomen report. After review of both studies, the gallbladder does appear to be abno rmal with gallbladder wall thickening present. Gallstones can be occult. No pericholecystic fluid is seen. Ultrasound was apparently unavailable to follow-up or clarify the discrepancy. The gallbladder findin gs were discussed with Dr. Cao. CLINICAL HISTORY: Abdominal pain. COMPARISON: None. TECHNIQUE: Axial CT imaging of the abdomen and pelvis performed with intravenous contrast. Reformatt ed coronal and sagittal images reviewed. A dose reduction technique was utilized with automated exposure control according to patient size. FINDINGS: Clear lung bases. Heart is normal in size. The liver is enlarged to approximately 21 cm. Mild fatty liver infiltration. No liver mass. No biliar y dilatation. Unremarkable gallbladder, spleen, pancreas, adrenal glands, and kidneys. Normal aorta and inferior vena cava caliber. No hemorrhage. No adenopathy. Mesenteric vessels appear normal. Unremarkable stomach and small bowel loops. Normal right lower quadrant appendix. Normal colo n. No ascites or free air. Normal bladder. Intrauterine device is present in the uterine fundus and body. Normal left ovary. Rig ht ovarian 2.7 cm follicle. No pelvic free fluid or adenopathy. Unremarkable lumbar spine. Intact bony pelvis. Normal hips. IMPRESSION: 1. Mild hepatomegaly with minimal steatosis. 2. 2.7 cm right ovarian follicle. 3. No acute finding within the abdomen or pelvis to account for reported pain. Electronically signed by: Bryanna Sumner DO 07/29/2020 5:12 AM FORK TRUCK DRIVER Due to temporary technical issues with the PACS/Fluency reporting system, reports are being signed by the in house radiologists without review as a courtesy to insure prompt reporting. The interpreting radiologist is fully responsible for the content of the report.
--- NOTE | 2020-07-30 07:43 | EKG ---
Test Date: 2020-07-29 Test Time: 02:38:58 Elephant Tamer: MG MEASUREMENT RESULTS: Intervals: Rate: 72 KS: 144 QRSD: 102 QT: 422 QTc: 462 [place]: P: 34 KS: 144 QRS: 2 T: 6 INTERPRETIVE STATEMENTS: Normal sinus rhythm Nonspecific T wave abnormality Prolonged QT Abnormal ECG No previous ECG available for comparison Electronically Signed On 07-30-20 07:40:46 MARKETING FORECASTER by Zain Blue
== END 2020-07-29 08:51 | disposition home or self-care (01) ==
LOC: ER 02:31
DX: R10.13 Epigastric pain (principal)
CPT/HCPCS: 93005; 85025; 80048; 36415; 83735; 81025; 85610; 80076; 81003; 84484 ×2; 83690; 83880; 71275; 74177; 71045; 96375; 96374; 99285; Q9967; J2270; J2405

== ENCOUNTER 2021-05-04 07:31 | Day surgery (SDC) | payer BC ==
[2021-05-03 14:26] LABS: Absolute Lymphocytes (CBC) 2.1 K/uL (0.7-4.9); Basophils % 0.2 % (0-1.3); Hematocrit 38.2 % (36.0-45.0); Lymphocytes % 24.8 % (15.3-44.8); MPV 8.4 fL (7.6-11.3); RBC Red Blood Cell Count 4.27 M/uL (3.86-4.86)
[2021-05-03 14:36] LABS: BUN Blood Urea Nitrogen 12 mg/dL (7-18); Bicarbonate 29 mmol/L (21-32); Glucose Level 105 mg/dL (74-106); Potassium 3.7 mmol/L (3.5-5.1); Sodium Level 141 mmol/L (136-145)
--- NOTE | 2021-05-03 14:44 | RAD REPORT ---
EXAM DESCRIPTION: RAD - Chest Single View - 05/03/2021 2:31 pm CLINICAL HISTORY: PRE ASSESMENT FOR SURGERY Chest pain. COMPARISON: Chest Single View dated 07/29/2020 FINDINGS: Portable technique limits examination quality. The lungs are grossly clear. The heart is normal in size. No displaced fractures. IMPRESSION: No acute intrathoracic process suspected.
[2021-05-04] MEDS: BUPIVACAINE 0.5% PF 10 ML VIAL ONE ×2 (07:40→08:44)
[2021-05-04] MEDS ORDERED: LIDOCAINE 2% MPF 5 ML VIAL ONE (07:57)
[2021-05-04] MEDS ORDERED: dexAMETHasone 10 MG/ML VIAL ONE (07:57)
[2021-05-04] MEDS ORDERED: ROCURONIUM 50 MG/5 ML VIAL IV ONE (07:57)
[2021-05-04] MEDS ORDERED: propofoL 200 MG/20 ML VIAL IV ONE (07:57)
[2021-05-04] MEDS ORDERED: MIDAZOLAM HCL 2 MG/2 ML INJ ONE (07:58)
[2021-05-04] MEDS ORDERED: FENTANYL CITR 250 MCG/5 ML ONE (07:58)
[2021-05-04] MEDS ORDERED: ONDANSETRON 4 MG/2 ML VIAL ONE (07:58)
[2021-05-04] MEDS ORDERED: Ringers Lactate 1,000 ML IV ONE ×2 (08:09→09:18)
[2021-05-04] MEDS ORDERED: CEFOXITIN/SWI 1gm 1 GM/10 ML SYR ONE (08:25)
[2021-05-04] MEDS: MORPHINE 4 MG/ML SYR ONE ×2 (10:25→10:32)
[2021-05-04 10:29] VITALS: TEMP 97.4
--- NOTE | 2021-05-04 11:11 | EKG ---
Test Date: 2021-05-03 Test Time: 13:13:31 Tetryl Screen Operator: AGAPITO MEASUREMENT RESULTS: Intervals: Rate: 62 TN: 132 QRSD: 100 QT: 456 QTc: 462 [place]: P: 34 TN: 132 QRS: -6 T: 10 INTERPRETIVE STATEMENTS: Normal sinus rhythm Moderate voltage criteria for LVH, may be normal variant Nonspecific ST and T wave abnormality Prolonged QT Abnormal ECG Compared to ECG 07/29/2020 02:38:58 Left ventricular hypertrophy now present ST (T wave) deviation now present T-wave abnormality no longer present Electronically Signed On 05-04-21 11:07:48 CDT by Zain Blue
[2021-05-04] MEDS ORDERED: HYDROCODONE/APAP 7.5/325 MG TAB ONE (11:34)
[2021-05-04 11:50] VITALS: BP 111/55; O2SAT 100
--- NOTE | 2021-05-04 13:56 | OP ---
Date of Procedure: 05/04/2021 Surgeon: Arnol Harmon MD Business Continuity Planner: RICARDO Clarke Preoperative Diagnoses: Chronic cholecystitis and cholelithiasis. History of choledocholithiasis. Postoperative Diagnoses: Chronic cholecystitis and cholelithiasis. History of choledocholithiasis, extensive adhesions. Procedure Performed: Laparoscopic cholecystectomy and laparoscopic lysis of adhesions. Estimated Blood Loss: Minimal. Specimen: Gallbladder. Findings: Above. Anesthesia: General. Complications: None. Disposition: The patient tolerated procedure in stable condition, taken to recovery in good general condition. Operative Note: The patient was brought to the OR and placed in supine position. General anesthesia was begun. The patient was prepped and draped in the usual sterile fashion. Marcaine 0.5% was infi ltrated for postop pain control locally. A 15-blade was used to make a 1 cm supraumbilical midline i ncision. Subcutaneous tissue was divided. Fascia identified and divided. #1 Vicryl stay suture was placed. Peritoneal cavity was entered with sharp and blunt dissection. A 12 mm trocar was placed i nto the peritoneal cavity under direct vision. Pneumoperitoneum was established and I could only get one 5 mm trocars in because of extensive adhesions on the right side of the abdomen, they were oment al in nature. A 5 mm trocar was placed and the camera was switched and then the ligature was utilize d to take down all of the omental adhesion, approximately 10 to 15 minutes time was used to release t he adhesions. All the adhesions were taken down and then 2 right subcostal 5 mm trocars were placed under direct vision. The gallbladder was identified, it also had some adhesions which were taken annie n with sharp and blunt dissection. Bleeding was controlled with cautery. Fundus retracted superiorl y. Infundibulum was identified and retracted inferolaterally. Cystic duct and cystic artery were cl early identified with blunt dissection. Clips placed. Both structures were divided. Cautery was us ed to remove the gallbladder from the liver bed. Bleeding in the liver bed was controlled with caute ry. Gallbladder was retrieved through the umbilicus via an EndoCatch bag. Right upper quadrant was irrigated. Effluent was clear. There was some oozing noted on the liver bed and Surgicel was placed as a precaution but there was no further bleeding noted at all and no evidence of bowel injury. Sub sequently all trocars were removed under direct vision. Stay sutures were tied to each other to appr oximate the fascial defect. Subcu wounds were irrigated. Bleeding was controlled with cautery. A 3 -0 chromic was used to approximate the subcutaneous tissue and close the skin. Sterile dressing was applied. The patient was awakened and taken to Recovery in good general condition. Discharge Note: The patient will go to day surgery and home when stable. Disposition: Home. Condition: Stable. Discharge Instructions: Resume home medications and diet. Activity as tolerated. No heavy lifting. Remove outer dressing in 2 days. Shower. Keep wound clean and dry. Keep Steri-Strips on at all t imes. Followup in my office in 1 week. Call for appointment. Tylenol No. 3 one tablet p.o. q.4 p.r.n. billy LOVE/MODL Voice ID: [id number] Report ID: [id number]
== END 2021-05-04 11:45 | disposition home or self-care (01) ==
LOC: OR 07:31
PROVIDERS: ATTEND Surgery
PROC: 0DNW4ZZ Release Peritoneum, Percutaneous Endoscopic Approach (ICD-10-PCS; 2021-05-04)
PROC: 0FT44ZZ Resection of Gallbladder, Percutaneous Endoscopic Approach (ICD-10-PCS; principal; 2021-05-04 08:30)
DX: K80.10 Calculus of gallbladder with chronic cholecystitis without obstruction (principal); Z20.822 Contact with and (suspected) exposure to COVID-19
CPT/HCPCS: 93005; 85025; 80048; 36415; 84703; 88304; 71045; 47562; 49329; U0003; J2704; J2250; J3010; J1100; J7120 ×2; J2405

== ENCOUNTER 2021-05-06 10:15 | Inpatient (IN) | payer BC ==
[2021-05-06 10:56] LABS: Urine Blood 2+ (Negative); Urine Glucose Negative (Negative); Urine Protein 1+ (Negative); Urine Specific Gravity >=1.030 (1.005-1.030); Urine pH 5.5 (5.0-7.0)
[2021-05-06] MEDS ORDERED: MORPHINE 4 MG/ML SYR ONE ×2 (11:33→13:07)
[2021-05-06] MEDS ORDERED: ONDANSETRON 4 MG/2 ML VIAL ONE ×2 (11:33→13:07)
[2021-05-06] MEDS ORDERED: NA CHLORIDE 0.9% 1,000 ML ONE (11:34)
[2021-05-06] MEDS ORDERED: FAMOTIDINE 20 MG/2 ML VIAL IV ONE (11:34)
[2021-05-06 11:48] LABS: Urine Bacteria <20 /HPF (<20); Urine RBC NONE SEEN /HPF (NONE SEEN)
[2021-05-06 11:49] LABS: Urine Amorphous Sediment 3+ /HPF (NONE SEEN)
[2021-05-06 11:50] LABS: ALT/SGPT 103 U/L (12-78); AST/SGOT 48 U/L (15-37); Alkaline Phosphatase 70 U/L (45-117); BUN Blood Urea Nitrogen 10 mg/dL (7-18); Bicarbonate 31 mmol/L (21-32); Bilirubin Direct 0.1 mg/dL (0-0.2); Bilirubin Total 0.5 mg/dL (0.2-1.0); Glucose Level 104 mg/dL (74-106); Lipase 50 U/L (73-393); Potassium 3.4 mmol/L (3.5-5.1); Protein, Total 8.1 g/dL (6.4-8.2); Sodium Level 139 mmol/L (136-145)
[2021-05-06 12:27] LABS: Absolute Lymphocytes (CBC) 1.2 K/uL (0.7-4.9); Basophils % 0.3 % (0-1.3); RBC Red Blood Cell Count 4.22 M/uL (3.86-4.86)
--- NOTE | 2021-05-06 13:03 | RAD REPORT ---
EXAM DESCRIPTION: CT - Abdomen Pelvis W Contrast - 05/06/2021 12:33 pm CLINICAL HISTORY: ABD PAIN, epigastric pain, cholecystectomy 3 days earlier COMPARISON: Abdomen Pelvis W Contrast dated 07/29/2020 TECHNIQUE: Biphasic, helical CT imaging of the abdomen and pelvis was performed following 100 ml non -ionic IV contrast. No oral contrast administered. All CT scans are performed using dose optimization technique as appropriate and may include automated exposure control or mA/KV adjustment according to patient size. FINDINGS: No suspicious findings in the lung bases. The liver, spleen, and pancreas show no suspicious findings. Cholecystectomy clips are present. No bi liary tree dilatation. There is a 6 x 3 cm sized area of air soft tissue density at the gallbladder f nereida. Postsurgical changes are noted to the periumbilical abdominal wall and subcutaneous fat as well is in the right upper quadrant. The gallbladder fossa and abdominal wall changes are all consistent with a recent cholecystectomy. The amount of blood or fluid in the gallbladder fossa is not outside o f normal range. No abscess finding suspected at this time. Symmetric renal function is seen with no hydronephrosis or suspicious renal mass. No pyelonephritis o r acute parenchymal process. No bladder abnormalities. No adrenal abnormalities. Uterus and ovaries s how no suspicious findings. IUD is in place. No dilated bowel loops or bowel wall thickening. No free air or pneumatosis. Small amount of fluid i s seen in the dependent portion of the pelvis and in the inferior aspect of the right pericolic gutte r. Again, this is physiologic fluid quantity or normal postsurgical fluid. No hernia, mass or bulky lymphadenopathy. No suspicious bony findings. IMPRESSION: Air, fluid and blood in the gallbladder fossa approximately 6 x 3 cm in size. Small miguelito unt of fluid in the dependent portion the pelvis. Gallbladder fossa findings are not outside of normal range for very recent cholecystectomy. Abscess i s not suspected at this time. Findings are not sufficient for bile leak diagnosis.
[2021-05-06 13:38] LABS: Blood Morphology Comment NOT SEEN (NOT SEEN); Platelet Estimate ADEQ; Platelets, Giant NOTED; White Blood Cell Scan OK (OK)
[2021-05-06] MEDS ORDERED: POTASSIUM 25 MEQ EFFERV TAB ONE (13:40)
--- NOTE | 2021-05-06 14:06 | ER ---
Nurse's Notes [facility] Name: Salma Kidd Age: 30 yrs Sex: Female : 1990 Arrival Date: 05/06/2021 Time: 10:16 Bed 20 Private MD: Diagnosis: Nausea with vomiting, unspecified;Upper abdominal pain, unspecified-intractable Presentation: 05/06 10:26 Chief complaint: Patient states: Had gallbladder removed on , c/o epigastric rb3 pain. Took Tylenol #3 but it isn't helping and has nausea and vomiting. Coronavirus screen: At this time, the client does not indicate any symptoms associated with coronavirus-19. Ebola Screen: Patient denies travel to an Ebola-affected area in the 21 days before illness onset. Initial Sepsis Screen: Does the patient meet any 2 criteria? No. Patient's initial sepsis screen is negative. Does the patient have a suspected source of infection? No. Patient's initial sepsis screen is negative. Risk Assessment: Do you want to hurt yourself or someone else? Patient reports no desire to harm self or others. Onset of symptoms was May 03, 2021. 10:26 Method Of Arrival: Ambulatory rb3 10:26 Acuity: TICO 3 rb3 Triage Assessment: 10:26 General: Appears in no apparent distress. Behavior is calm, cooperative, Denies fever. rb3 Pain: Complains of pain in epigastric area Pain currently is 8 out of 10 on a pain scale. Pain began but pain is worse today. Neuro: Level of Consciousness is awake, alert, obeys commands, Oriented to person, place, time, situation. Cardiovascular: Patient's skin is warm and dry. Respiratory: Airway is patent Respiratory effort is even, unlabored, Respiratory pattern is regular, symmetrical. GI: Reports constipation, nausea, vomiting, Last bowel movement was on . : No signs and/or symptoms were reported regarding the genitourinary system. Derm: Surgical wounds noted on the abdomen due to having her gallbladder removed. Steri strips in place, no bleeding noted at this time. BUDGET OFFICER: 10: LMP 04/22/2021 rb3 Historical: - Home Meds: 10:26 acetaminophen-codeine 300-30 mg oral tab 1 tab every 4 hours [Active]; rb3 - Immunization history:: Adult Immunizations up to date. - Social history:: Smoking status: Patient/guardian denies using. Screenin:26 Abuse screen: Denies threats or abuse. Nutritional screening: No deficits noted. rb3 Tuberculosis screening: No symptoms or risk factors identified. Fall Risk None identified. Assessment: 10:26 General: See triage assessment. rb3 11:30 Reassessment: Patient appears in no apparent distress at this time. Patient and/or rb3 family updated on plan of care and expected duration. Pain level reassessed. Patient is alert, oriented x 3, equal unlabored respirations, skin warm/dry/pink. 12:30 Reassessment: Patient appears in no apparent distress at this time. Patient and/or rb3 family updated on plan of care and expected duration. Pain level reassessed. 13:30 Reassessment: Patient appears in no apparent distress at this time. Patient and/or rb3 family updated on plan of care and expected duration. Pain level reassessed. Patient is alert, oriented x 3, equal unlabored respirations, skin warm/dry/pink. Pt ambulated to the restroom. 14:30 Reassessment: Patient appears in no apparent distress at this time. Patient and/or rb3 family updated on plan of care and expected duration. Pain level reassessed. 15:15 Reassessment: Patient appears in no apparent distress at this time. Patient and/or rb3 family updated on plan of care and expected duration. Pain level reassessed. Pt is actively vomiting. ROSELINE Castano notified. Received verbal order for Phenergan 25 mg IVP x 1, 100% verbal read back. 16:09 Reassessment: Patient appears in no apparent distress at this time. Patient and/or rb3 family updated on plan of care and expected duration. Pain level reassessed. Patient is alert, oriented x 3, equal unlabored respirations, skin warm/dry/pink. 17:00 Reassessment: Patient appears in no apparent distress at this time. Patient and/or rb3 family updated on plan of care and expected duration. Pain level reassessed. 18:00 Reassessment: Patient appears in no apparent distress at this time. Patient and/or rb3 family updated on plan of care and expected duration. Pain level reassessed. Patient is alert, oriented x 3, equal unlabored respirations, skin warm/dry/pink. Vital Signs: 10:26 BP 125 / 65; Pulse 67; Resp 17; Temp 97.7; Pulse Ox 100% ; Weight 80.74 kg; Height 5 rb3 ft. 5 in. (165.10 cm); Pain 8/10; 11:30 BP 126 / 85; Pulse 62; Resp 17; Pulse Ox 100% ; rb3 12:30 BP 145 / 76; Pulse 63; Resp 18; Pulse Ox 100% ; rb3 13:30 BP 117 / 78; Pulse 60; Resp 19; Pulse Ox 96% ; rb3 14:30 BP 140 / 80; Pulse 72; Resp 17; Pulse Ox 98% ; rb3 15:30 BP 123 / 66; Pulse 76; Resp 18; Pulse Ox 96% ; rb3 16:30 BP 133 / 77; Pulse 96; Resp 17; Pulse Ox 99% ; rb3 17:29 BP 134 / 71; Pulse 64; Resp 20; Pulse Ox 100% ; rb3 18:28 BP 129 / 70; Pulse 66; Resp 17; Pulse Ox 98% ; rb3 10:26 Body Mass Index 29.62 (80.74 kg, 165.10 cm) rb3 ED Course: 10:16 Patient arrived in ED. as 10:26 Arm band placed on right wrist. rb3 10:26 Patient has correct armband on for positive identification. Bed in low position. Call rb3 light in reach. Side rails up X 1. Pulse ox on. NIBP on. Warm blanket given. 10:27 Darien Castano PA is PHCP. cp 10:27 Darien Johnson MD is Attending Physician. cp 10:46 Aida Dyer, RN is Primary Nurse. rb3 10:51 Triage completed. rb3 11:07 Inserted saline lock: 20 gauge in right antecubital area, using aseptic technique. rb3 Blood collected. 12:34 CT Abd/Pelvis - IV Contrast Only In Process Unspecified. EDMS 14:04 Arnol Harmon MD is Hospitalizing Provider. cp 19:30 Primary Nurse role handed off by Aida Dyer, RN mw2 19:37 Amanda Bermudez RN is Primary Nurse. lh3 20:07 Urine --Ancillary (enter results) Sent. lh3 Administered Medications: 11:17 Drug: morphine 4 mg Route: IVP; Site: right antecubital; rb3 11:30 Follow up: Response: No adverse reaction; Pain is decreased rb3 11:18 Drug: Zofran (Ondansetron) 4 mg Route: IVP; Site: right antecubital; rb3 11:30 Follow up: Response: No adverse reaction; Nausea is decreased rb3 11:18 Drug: Pepcid (famotidine) 20 mg Route: IVP; Site: right antecubital; rb3 11:30 Follow up: Response: No adverse reaction rb3 11:18 Drug: NS 0.9% 1000 ml Route: IV; Rate: 1 bolus; Site: right antecubital; rb3 12:30 Follow up: IV Status: Completed infusion rb3 13:00 Drug: morphine 4 mg Route: IVP; Site: right antecubital; rb3 13:45 Follow up: Response: No adverse reaction; Pain is decreased rb3 13:00 Drug: Zofran (Ondansetron) 4 mg Route: IVP; Site: right antecubital; rb3 13:45 Follow up: Response: No adverse reaction; Nausea is decreased rb3 13:22 Drug: Potassium Effervescent Tablet 50 mEq Route: PO; rb3 14:50 Follow up: Response: No adverse reaction rb3 15:20 Drug: Phenergan (promethazine) 25 mg Route: IVP; Site: right antecubital; rb3 15:40 Follow up: Response: No adverse reaction; Nausea is decreased rb3 17:02 Drug: Dilaudid (HYDROmorphone) 1 mg Route: IVP; Site: right antecubital; rb3 Outcome: 14:05 Decision to Hospitalize by Provider. alexia 05/07 15:58 Patient left the ED. sv Signatures: Dispatcher [employer] Ruthann Pa RN Marycarmen Vega Corey, PA PA cp [place], MyKena 2 Aida Dyer RN RN rb3 Amanda Bermudez RN RN lh3
--- NOTE | 2021-05-06 14:06 | EDPHYS ---
Physician Documentation [facility] Name: Salma Kidd Age: 30 yrs Sex: Female : 1990 Arrival Date: 05/06/2021 Time: 10:16 Bed 20 Private MD: LACEY Physician Darien Johnson HPI: 05/06 10:50 This 30 yrs old Female presents to ER via Ambulatory with complaints of cp Epigastric Pain, Abdominal Pain, Vomiting. 10:50 The patient presents with abdominal pain in the epigastric area. Onset: The cp symptoms/episode began/occurred this morning. Associated signs and symptoms: Pertinent positives: nausea and vomiting, constipation. 10:50 The symptoms are described as constant. cp 10:50 Patient reports having uncomplicated cholecystectomy performed by DR Harmon 2 days ago. cp D[employer]ING [employer]: 10:26 LMP 04/22/2021 rb3 Historical: - Home Meds: 10:26 acetaminophen-codeine 300-30 mg oral tab 1 tab every 4 hours [Active]; rb3 - Immunization history:: Adult Immunizations up to date. - Social history:: Smoking status: Patient/guardian denies using. ROS: 11:00 Constitutional: Positive for poor PO intake, Negative for body aches, chills, fever. cp 11:00 Eyes: Negative for injury, pain, redness, and discharge. cp 11:00 ENT: Negative for drainage from ear(s), ear pain, sore throat, difficulty swallowing, difficulty handling secretions. 11:00 Cardiovascular: Negative for chest pain, palpitations. 11:00 Respiratory: Negative for cough, shortness of breath, wheezing. 11:00 Abdomen/GI: Positive for abdominal pain, nausea and vomiting, constipation, anorexia, Negative for diarrhea, hematemesis, black/tarry stool, rectal bleeding. 11:00 : Negative for urinary symptoms. 11:00 Neuro: Negative for altered mental status, headache, syncope, weakness. 11:00 All other systems are negative. Exam: 11:05 Constitutional: The patient appears in no acute distress, alert, awake, cp non-diaphoretic, non-toxic, well developed, well nourished, obese, uncomfortable. 11:05 Head/Face: Normocephalic, atraumatic. cp 11:05 Eyes: Periorbital structures: appear normal, Conjunctiva: normal, no exudate, no injection, Sclera: no appreciated abnormality, Lids and lashes: appear normal, bilaterally. 11:05 ENT: External ear(s): are unremarkable, Nose: is normal, Mouth: Lips: moist, Oral mucosa: moist, Posterior pharynx: Airway: no evidence of obstruction, patent. 11:05 Chest/axilla: Inspection: normal, Palpation: is normal, no crepitus, no tenderness. 11:05 Cardiovascular: Rate: normal, Rhythm: regular. 11:05 Respiratory: the patient does not display signs of respiratory distress, Respirations: normal, no use of accessory muscles, no retractions, labored breathing, is not present, Breath sounds: are clear throughout, no decreased breath sounds, no stridor, no wheezing. 11:05 Abdomen/GI: Inspection: distension, is not seen, Bowel sounds: active, all quadrants, Palpation: soft, in all quadrants, severe abdominal tenderness, in the epigastric area and right upper quadrant, rebound tenderness, is not appreciated, voluntary guarding, is elicited in the epigastric area and right upper quadrant. 11:05 Back: CVA tenderness, is absent. 11:05 Skin: cellulitis, is not appreciated, no rash present. 11:05 Neuro: Orientation: to person, place \T\ time. Mentation: is normal, Motor: moves all fours, strength is normal. Vital Signs: 10:26 BP 125 / 65; Pulse 67; Resp 17; Temp 97.7; Pulse Ox 100% ; Weight 80.74 kg; Height 5 rb3 ft. 5 in. (165.10 cm); Pain 8/10; 11:30 BP 126 / 85; Pulse 62; Resp 17; Pulse Ox 100% ; rb3 12:30 BP 145 / 76; Pulse 63; Resp 18; Pulse Ox 100% ; rb3 13:30 BP 117 / 78; Pulse 60; Resp 19; Pulse Ox 96% ; rb3 14:30 BP 140 / 80; Pulse 72; Resp 17; Pulse Ox 98% ; rb3 15:30 BP 123 / 66; Pulse 76; Resp 18; Pulse Ox 96% ; rb3 16:30 BP 133 / 77; Pulse 96; Resp 17; Pulse Ox 99% ; rb3 17:29 BP 134 / 71; Pulse 64; Resp 20; Pulse Ox 100% ; rb3 18:28 BP 129 / 70; Pulse 66; Resp 17; Pulse Ox 98% ; rb3 10:26 Body Mass Index 29.62 (80.74 kg, 165.10 cm) rb3 MDM: 10:43 Patient medically screened. cp 11:00 Differential diagnosis: bowel obstruction, pancreatitis, Ureterolithiasis, urinary cp tract infection. 13:45 ED course: Patient continues to reports 7 out of 10 pain after 2 doses of IV pain cp medications. 14:00 Data reviewed: vital signs, nurses notes, lab test result(s), radiologic studies, CT cp scan. 14:00 Physician consultation: Arnol Harmon MD was contacted at 13:55, regarding consult, cp patient's condition, wants patient admitted onto his service for continued monitoring and pain control. 05/06 10:46 Order name: CBC with Diff; Complete Time: 13:55 05/06 13:08 Interpretation: Normal except: WBC 12.30; JUSTINE% 85.3; LYM% 10.0. 05/06 10:46 Order name: Lipase; Complete Time: 13:06 05/06 13:06 Interpretation: LIP 50; Reviewed. 05/06 10:46 Order name: Urine Microscopic Only; Complete Time: 13:06 05/06 13:07 Interpretation: Normal except: AMORPH 3+. 05/06 10:47 Order name: Basic Metabolic Panel; Complete Time: 13:06 EDOK 05/06 13:07 Interpretation: Normal except: K 3.4; CRE 0.51. 05/06 10:47 Order name: Liver (Hepatic) Function; Complete Time: 13:06 EDOK 05/06 10:56 Order name: Urine Dipstick-Ancillary; Complete Time: 11:35 EDOK 05/06 11:35 Interpretation: Normal except: UKET Trace; UBLD 2+; UPROT 1+. 05/06 10:57 Order name: Urine --Ancillary (enter results) eb 05/06 10:58 Order name: Urine --Ancillary; Complete Time: 13:06 EDOK 05/06 12:31 Order name: CBC Smear Scan; Complete Time: 13:55 EDOK 05/06 14:50 Order name: Basic Metabolic Panel [facility] 05/06 14:50 Order name: Basic Metabolic Panel [facility] 05/06 14:50 Order name: Lipase EDMS 05/06 12:11 Order name: CT Abd/Pelvis - IV Contrast Only; Complete Time: 13:06 cp 05/06 14:51 Order name: Lipase EDMS 05/06 14:51 Order name: CBC with Automated Diff EDMS 05/06 14:51 Order name: CBC with Automated Diff EDMS 05/06 14:51 Order name: Liver (Hepatic) Function EDMS 05/06 14:51 Order name: Liver (Hepatic) Function EDMS 05/07 10:57 Order name: CT EDMS 05/07 11:03 Order name: CREATININE WHOLE BLOOD EDMS 05/06 10:46 Order name: IV Saline Lock; Complete Time: 11:18 cp 05/06 10:46 Order name: Labs collected and sent; Complete Time: 11:18 cp 05/06 10:46 Order name: Urine Dipstick-Ancillary (obtain specimen); Complete Time: 11:18 cp 05/06 10:46 Order name: Urine Test (obtain specimen); Complete Time: 11:18 cp 05/06 14:51 Order name: Clear Liquid; Complete Time: 20:17 EDMS Administered Medications: 11:17 Drug: morphine 4 mg Route: IVP; Site: right antecubital; rb3 11:30 Follow up: Response: No adverse reaction; Pain is decreased rb3 11:18 Drug: Zofran (Ondansetron) 4 mg Route: IVP; Site: right antecubital; rb3 11:30 Follow up: Response: No adverse reaction; Nausea is decreased rb3 11:18 Drug: Pepcid (famotidine) 20 mg Route: IVP; Site: right antecubital; rb3 11:30 Follow up: Response: No adverse reaction rb3 11:18 Drug: NS 0.9% 1000 ml Route: IV; Rate: 1 bolus; Site: right antecubital; rb3 12:30 Follow up: IV Status: Completed infusion rb3 13:00 Drug: morphine 4 mg Route: IVP; Site: right antecubital; rb3 13:45 Follow up: Response: No adverse reaction; Pain is decreased rb3 13:00 Drug: Zofran (Ondansetron) 4 mg Route: IVP; Site: right antecubital; rb3 13:45 Follow up: Response: No adverse reaction; Nausea is decreased rb3 13:22 Drug: Potassium Effervescent Tablet 50 mEq Route: PO; rb3 14:50 Follow up: Response: No adverse reaction rb3 15:20 Drug: Phenergan (promethazine) 25 mg Route: IVP; Site: right antecubital; rb3 15:40 Follow up: Response: No adverse reaction; Nausea is decreased rb3 17:02 Drug: Dilaudid (HYDROmorphone) 1 mg Route: IVP; Site: right antecubital; rb3 Disposition: 05/08 08:10 Co-signature as Attending Physician, Darien Johnson MD I agree with the assessment and manuel plan of care. Disposition Summary: 05/06/21 14:05 Hospitalization Ordered Hospitalization Status: Observation cp Provider: Arnol Harmon cp Condition: Stable cp Problem: new cp Symptoms: have improved cp Bed/Room Type: Standard cp Location: Telemetry/MedSurg (Inpatient)(05/07/21 15:42) Room Assignment: [facility](05/07/21 15:42) Diagnosis - Nausea with vomiting, unspecified cp - Upper abdominal pain, unspecified - intractable cp Forms: - Medication Reconciliation Form cp - SBAR form cp Signatures: Dispatcher [employer] EDDarien Coronado MD MD cha Smirch, Shelby, RN RN Darien Rivera PA PA cp Lexi Travis Rebecca, RN RN rb3 Corrections: (The following items were deleted from the chart) 05/06 17:04 14:05 Telemetry/MedSurg (observation) cp eb 17:04 14:05 cp eb 20:07 10:47 BASIC METABOLIC PANEL+C.LAB.BRZ ordered. EDMS EDMS 20:07 10:47 HEPATIC FUNCTION+C.LAB.BRZ ordered. EDMS EDMS 05/07 15:42 08 17:04 [facility] ER HOLD eb ss 05/07 15:42 05/06 17:04 ERHOLD- eb ss
[2021-05-06] MEDS ORDERED: ACETAMINOPHEN 500 MG TAB PO PRN (14:46)
[2021-05-06] MEDS: HYDROCODONE/APAP 7.5/325 MG TAB PO SCH (15:00)
[2021-05-06] MEDS: D5 0.45 NS 1,000 ML IV SCH ×2 (15:00→23:00)
[2021-05-06] MEDS ORDERED: PROMETHAZINE INJ 25 MG/ML AMP ONE (15:40)
[2021-05-06] MEDS ORDERED: HYDROMORPHONE HCL 1 MG/ML INJ ONE ×2 (16:59→18:46)
[2021-05-06] MEDS: PIPER/TAZO/NS 3.375gm 3.375 GM/100 ML BAG IVPB SCH (17:00)
[2021-05-06] MEDS ORDERED: PIPER/TAZO/NS 3.375gm 3.375 GM/100 ML BAG ONE (17:31)
[2021-05-06] MEDS: HYDROMORPHONE HCL 1 MG/ML INJ IV PRN ×2 (18:26→22:06)
[2021-05-06] MEDS ORDERED: HYDROMORPHONE HCL 2 MG/ML inj ONE (22:25)
[2021-05-07] MEDS: PIPER/TAZO/NS 3.375gm 3.375 GM/100 ML BAG IVPB SCH ×3 (01:00→17:00)
[2021-05-07] MEDS ORDERED: HYDROCODONE/APAP 7.5/325 MG TAB ONE ×3 (01:18→14:22)
[2021-05-07] MEDS ORDERED: D5 0.45 NS 1,000 ML IV ONE (01:19)
[2021-05-07] MEDS ORDERED: PIPERACIL/TAZO 3.375 GM VIAL IV ONE (01:49)
[2021-05-07] MEDS ORDERED: NA CHLORIDE 0.9% 100 ML ONE (01:49)
[2021-05-07 03:18] LABS: ALT/SGPT 114 U/L (12-78); AST/SGOT 62 U/L (15-37); Albumin 3.6 g/dL (3.4-5.0); Alkaline Phosphatase 87 U/L (45-117); BUN Blood Urea Nitrogen 6 mg/dL (7-18); Bicarbonate 29 mmol/L (21-32); Bilirubin Direct 0.6 mg/dL (0-0.2); Bilirubin Total 1.5 mg/dL (0.2-1.0); Glucose Level 118 mg/dL (74-106); Lipase 35 U/L (73-393); Potassium 4.1 mmol/L (3.5-5.1); Protein, Total 7.7 g/dL (6.4-8.2); Sodium Level 136 mmol/L (136-145)
[2021-05-07 03:40] LABS: Absolute Lymphocytes (CBC) 1.3 K/uL (0.7-4.9); Basophils % 0.1 % (0-1.3); Hematocrit 38.8 % (36.0-45.0); Lymphocytes % 9.3 % (15.3-44.8); MPV 9.1 fL (7.6-11.3); RBC Red Blood Cell Count 4.31 M/uL (3.86-4.86)
[2021-05-07] MEDS: HYDROMORPHONE HCL 1 MG/ML INJ IV PRN ×5 (04:53→22:20)
[2021-05-07] MEDS ORDERED: HYDROMORPHONE HCL 1 MG/ML INJ ONE ×3 (05:15→13:24)
[2021-05-07] MEDS ORDERED: PIPER/TAZO/NS 3.375gm 3.375 GM/100 ML BAG ONE (08:10)
[2021-05-07] MEDS: HYDROCODONE/APAP 7.5/325 MG TAB PO SCH ×4 (08:57→18:00)
--- NOTE | 2021-05-07 10:56 | RAD REPORT ---
EXAM DESCRIPTION: CT - Chest For Pe Angio - 05/07/2021 10:43 am CLINICAL HISTORY: r/o PE COMPARISON: Chest For Pe Angio dated 07/29/2020; Abdomen Pelvis W Contrast dated 05/06/2021; Chest Single View dated 05/03/2021; Cholangiogram dated 04/30/2021 FINDINGS: Chest Wall: No suspicious thyroid nodules or pathologic lymphadenopathy. Lungs: Dependent atelectasis at the right lung base. Pleura: No significant effusions or pneumothorax. Mediastinum/swetha: No pathologic lymphadenopathy. Small hiatal hernia. Pulmonary arteries/Aorta: No filling defect identified. No aortic aneurysm. Heart: No significant pericardial effusion. Normal heart size. Upper abdomen: Small volume of free air within the upper abdomen. Bones: No acute abnormality. IMPRESSION: 1. Negative for pulmonary embolism. 2. Mild dependent atelectasis and trace effusion at the right lung base, otherwise no acute findings in the chest. 3. Pneumoperitoneum again noted and not significant changed since 05/06/2021. This is presumably post operative per
[2021-05-07] MEDS: D5 0.45 NS 1,000 ML IV SCH ×3 (15:00→23:00)
[2021-05-07] MEDS: ENOXAPARIN 40 MG/0.4 ML SQ SCH (18:07)
[2021-05-07 18:13] VITALS: BMI 29.2
[2021-05-07] MEDS: ONDANSETRON 4 MG/2 ML VIAL IV PRN (19:43)
[2021-05-07] MEDS: DOCUSATE NA 100 MG CAP PO SCH (22:20)
--- NOTE | 2021-05-07 22:36 | HP ---
Date of Admission: 05/06/2021 Reason: Abdominal pain. History Of Present Illness: The patient is a 30-year-old female who underwent lap taco on Friday by me for chronic cholecystitis, cholelithiasis, and possible choledocholithiasis. She had a preop MRC P done, which was negative. In the surgery, findings were significant for a very acutely and chronic ally inflamed gallbladder as well as extensive adhesions in the right side of the abdomen, right uppe r quadrant. The patient went home and was having pain in the epigastric region and right upper quadr ant abdominal pain associated with nausea and vomiting and constipation. No diarrhea. No blood in h er stool. No dysuria or hematuria. No sore throat, runny nose, cough, headaches, or dizziness. Ameya e shortness of breath with pain in the epigastric region every time she talks. That started today. The patient was admitted for parenteral pain management. She had a little bit of leukocytosis. IV a ntibiotics were started as well. The patient has a little bit of fluid in the gallbladder fossa, whi ch is not unusual following the surgery, especially when the findings were as stated. Review of Systems: Otherwise unremarkable. No fever or chills. Past Medical History: Negative. Past Surgical History: . Allergies: NO ALLERGIES. Social History: The patient does not smoke or drink. Family History: Noncontributory. Physical Examination: Vital Signs: Stable. She is afebrile. General: She is awake, alert, and oriented x3. Head and Neck: No evidence of icterus. No neck masses. No JVD. Throat clear. Neck supple. Chest: Clear. Heart: S1 and S2. Abdomen: Soft. Positive tenderness in the right upper quadrant, right middle quadrant and epigastri c region. Dressing is clean, dry, and intact. No peritonitis. Extremities: Adequately perfused. Nontender. Neuro: Nonfocal. Laboratory Data: White count yesterday was 12.3 and today is 14.4. 12.7 yesterday, 13 to day. There is slight left shift. Chemistry reviewed. AST and ALT are slightly elevated at 48 and 1 03 yesterday, 62 and 114 today. Lipase is 35 and total bilirubin yesterday was , today is 1.5 and direct bilirubin 0.6 today and was 0.1 yesterday. The patient had a CT of the abdomen and pe lvis yesterday. It shows air fluid and blood in the gallbladder fossa approximately 6 x 3 cm, small amount of fluid in the dependent portion of the pelvis. Gallbladder fossa findings are not outside n ormal range for cholecystectomy. Abscess is not suspected at this time. Findings are not sufficient for bile leak diagnosis. Assessment: A 30-year-old female with abdominal pain, chest pain, shortness of breath following lap taco. Recommendations: We will continue IV antibiotics for right now. Incentive spirometry. Encourage am bulation and physical therapy consultations. Parenteral pain management. We will also get a PE prot ocol chest CT to rule out a PE and once we get her pain under better control and she is tolerating di et, ambulating, and afebrile, then we will be able to discharge her home in hopefully 24 to 48 hours. IVAN/DEANDRE Voice ID: [id number]
[2021-05-08] MEDS: ONDANSETRON 4 MG/2 ML VIAL IV PRN ×3 (00:20→10:27)
[2021-05-08] MEDS: HYDROCODONE/APAP 7.5/325 MG TAB PO SCH ×4 (00:20→20:12)
[2021-05-08] MEDS: PIPER/TAZO/NS 3.375gm 3.375 GM/100 ML BAG IVPB SCH ×3 (01:00→14:36)
[2021-05-08] MEDS: HYDROMORPHONE HCL 1 MG/ML INJ IV PRN ×5 (01:22→20:14)
[2021-05-08] MEDS: D5 0.45 NS 1,000 ML IV SCH ×3 (01:29→16:52)
[2021-05-08] MEDS ORDERED: PIPERACIL/TAZO 3.375 GM VIAL IV ONE (02:22)
[2021-05-08] MEDS ORDERED: NA CHLORIDE 0.9% 100 ML ONE (02:24)
[2021-05-08 05:17] LABS: Absolute Lymphocytes (CBC) 1.1 K/uL (0.7-4.9); Basophils % 0.1 % (0-1.3); Hematocrit 37.4 % (36.0-45.0); Lymphocytes % 10.5 % (15.3-44.8); MPV 7.9 fL (7.6-11.3); RBC Red Blood Cell Count 4.17 M/uL (3.86-4.86)
[2021-05-08 05:41] LABS: ALT/SGPT 101 U/L (12-78); AST/SGOT 40 U/L (15-37); Albumin 3.3 g/dL (3.4-5.0); Alkaline Phosphatase 134 U/L (45-117); BUN Blood Urea Nitrogen 4 mg/dL (7-18); Bicarbonate 31 mmol/L (21-32); Bilirubin Direct 2.4 mg/dL (0-0.2); Bilirubin Total 3.6 mg/dL (0.2-1.0); Glucose Level 131 mg/dL (74-106); Lipase 25 U/L (73-393); Magnesium 1.9 mg/dL (1.8-2.4); Phosphorus 2.8 mg/dL (2.5-4.9); Potassium 3.2 mmol/L (3.5-5.1); Protein, Total 7.5 g/dL (6.4-8.2); Sodium Level 135 mmol/L (136-145)
[2021-05-08] MEDS: DOCUSATE NA 100 MG CAP PO SCH ×2 (10:26→20:14)
[2021-05-08] MEDS ORDERED: BISACODYL 10 MG RECTAL SUPP PR PRN (13:44)
[2021-05-08] MEDS: ENOXAPARIN 40 MG/0.4 ML SQ SCH (14:37)
--- NOTE | 2021-05-08 15:31 | PN ---
Date of Progress Note: 05/08/2021 Subjective: The patient is still with upper abdominal pain. She had some nausea and vomiting last n ight, feels better this morning; however, still requiring parenteral pain management and parenteral a nti-nausea medications. Her CT PE protocol was negative yesterday. Her laboratory data reviewed. W maged count is normal at 10.4, however, she still has a slight left shift. Chemistry reviewed. LFTs are improving, although the alkaline phosphatase is slightly up. Total bilirubin and direct bilirubi n are up as well. Objective: Her vitals are stable. She is afebrile. Assessment: Abdominal pain, status post lap cholecystectomy with liver function tests, which have go ne up, the total bilirubin and alkaline phosphatase suggesting the patient may have choledocholithias is, therefore we will go ahead and get an MRCP and continue parenteral pain management, IV antibiotic s for the time being. /MODL Voice ID: [id number] Report ID: [id number]
--- NOTE | 2021-05-08 19:58 | RAD REPORT ---
EXAM DESCRIPTION: MRI - Cholangiogram - 05/08/2021 7:17 pm CLINICAL HISTORY: rule out cholecystitis COMPARISON: Cholangiogram dated 04/30/2021; Chest For Pe Angio dated 05/07/2021; Abdomen Pelvis W Co ntrast dated 05/06/2021 FINDINGS: Three-dimensional MRCP was performed using maximum intensity projection reconstruction on the same work station. Status post cholecystectomy. There is a fluid collection in the gallbladder fossa measuring 7.6 centi meters in maximal dimension. This is similar to 05/06/2021. The common bile duct and intrahepatic evan e ducts are normal in caliber. No choledocholithiasis is identified. There is some dependent airspace disease is not well evaluated. No hydronephrosis or suspicious renal lesions. Trace perisplenic flui d IMPRESSION: Cholecystectomy with similar sized fluid collection at the gallbladder fossa. If persist ent bile leak, would expect increasing fluid. Could correlate with bilirubin levels. No biliary ducta l dilatation or evidence of choledocholithiasis identified.
[2021-05-08] MEDS: ZOLPIDEM TARTRATE 5 MG TABLET PO PRN (21:05)
[2021-05-09] MEDS: HYDROCODONE/APAP 7.5/325 MG TAB PO SCH ×4 (00:37→18:21)
[2021-05-09] MEDS: PIPER/TAZO/NS 3.375gm 3.375 GM/100 ML BAG IVPB SCH ×3 (00:41→18:21)
[2021-05-09] MEDS: D5 0.45 NS 1,000 ML IV SCH ×2 (01:34→07:00)
[2021-05-09] MEDS: HYDROMORPHONE HCL 1 MG/ML INJ IV PRN ×4 (05:04→23:36)
[2021-05-09 05:25] LABS: Absolute Lymphocytes (CBC) 1.6 K/uL (0.7-4.9); Basophils % 0.2 % (0-1.3); Hematocrit 35.5 % (36.0-45.0); Lymphocytes % 17.8 % (15.3-44.8); MPV 7.9 fL (7.6-11.3); RBC Red Blood Cell Count 3.99 M/uL (3.86-4.86)
[2021-05-09 06:06] LABS: BUN Blood Urea Nitrogen 3 mg/dL (7-18); Bicarbonate 29 mmol/L (21-32); Glucose Level 111 mg/dL (74-106); Lipase 75 U/L (73-393); Potassium 3.3 mmol/L (3.5-5.1); Sodium Level 137 mmol/L (136-145)
[2021-05-09 10:21] LABS: ALT/SGPT 106 U/L (12-78); AST/SGOT 44 U/L (15-37); Alkaline Phosphatase 170 U/L (45-117); Bilirubin Direct 1.4 mg/dL (0-0.2); Bilirubin Total 2.3 mg/dL (0.2-1.0); Protein, Total 7.6 g/dL (6.4-8.2)
[2021-05-09] MEDS: Ringers Lactate 1,000 ML IV SCH (10:48)
[2021-05-09] MEDS: DOCUSATE NA 100 MG CAP PO SCH ×2 (10:49→20:10)
--- NOTE | 2021-05-09 11:14 | PN ---
Date of Progress Note: 05/09/2021 Subjective: The patient is awake and alert. Complaining of pain in the epigastrium. Still complain ing of constipation as well. She requires parenteral pain management at this point, both the [place] a nd the Dilaudid. Her labs are reviewed. Her white count is normal. Her left shift is improved. Ch emistry reviewed. Her bilirubin is down to 2.3 total and direct is 1.4. Her AST and ALT are essenti ally unchanged and her alkaline phosphatase is slightly elevated at 170. Objective: Her abdomen is soft, tender in the epigastrium. No peritonitis. Wound is healing well. Assessment: Status post laparoscopic cholecystectomy with abdominal pain, elevated liver function te sts, normal MRCP. Recommendations: We will treat her constipation with Dulcolax suppository and tap water enemas as ne eded. I will try to get GI Service to evaluate the patient for a second opinion. Continue IV antibi otics and parenteral pain management. Encourage ambulation, DVT prophylaxis, incentive spirometry. /MODL Voice ID: [id number] Report ID: [id number]
[2021-05-09] MEDS: ONDANSETRON 4 MG/2 ML VIAL IV PRN (14:25)
--- NOTE | 2021-05-09 16:50 | CON ---
Date of Consultation: 05/09/2021 Reason For Consultation: Persistent right upper quadrant midepigastric pain, status post laparoscopic cholecystectomy with some nausea. History Of Present Illness: The patient is a 30-year-old female with history of laparoscopic cholecystectomy on May 04, 2021, 4 days ago, and umbilical hernia repair in the remote past. The patient states that she went in for her surgery, had surgery done. There were extensive adhesions noted in the right side of the abdomen, right upper quadrant. With the gallbladder surgery, these were taken down. The patient prior to operation had negative MRCP yesterday as well. Re-admission to the hospital. Small leukocytosis off antibiotics noted. CT scan revealed some fluid in the gallbladder fossa area, within normal limits status post cholecystectomy as reported. Liver numbers were slightly elevated and have been coming down today compared to yesterday. Past Medical History: Significant for; 1. Umbilical hernia repair in remote past. 2. Laparoscopic cholecystectomy on May 04, 2021. Past Surgical History: Umbilical hernia and laparoscopic cholecystectomy as stated above. Allergies: NKDA. Social History: She is , 3 children. No tobacco. No alcohol. Family History: Father of coronary artery disease with myocardial infarction. Mother of chronic kidney disease. She was on hemodialysis prior to her , she reports. Review of Systems: The patient has right upper quadrant and midepigastric pain and occasional nausea. Of note, the surgeon said that there were extensive adhesions in the right side of the abdomen, right upper abdomen that took some time to take down. There also appears to be some fluid in that area. It is probably contusion or other, I guess, blood trauma from surgery. Adhesion takedown could be a possibility. The patient denies any melena, hematochezia, hematemesis, coffee- ground emesis, hematuria, dysuria, polydipsia, chest pain, shortness of breath, seizure, syncope, lower extremity muscle aches, joint aches, backaches, depression, or anxiety. Medications: Tylenol, Dulcolax, Colace, Lovenox, Hasty, Dilaudid, lactated Ringer's, Ambien, Zosyn. Allergies: NKDA. Physical Examination: Vital Signs: The patient is 5 feet 5, 176 pounds, BMI 29.3 kg/sq m. Temperature 98.3 degrees Fahrenheit, pulse 89, respirations 18, O2 saturation 96%, blood pressure 115/64. General: She is an obese female, lying in bed, mild distress. Again, she hurts in the midepigastric and right upper quadrant with pain in the area, but this has been chronic over the past week, it appears. HEENT: Normocephalic, atraumatic. Anicteric. Pupils equal, round, and reactive to light. Extraocular movements are intact. Oropharynx is clear. Neck: Supple. No masses. Respirations: Clear to auscultation bilaterally. Cardiac: Regular rate and rhythm. No gallops. Gastrointestinal: Positive bowel sounds. Soft, nondistended. Pain in the midepigastric and right upper quadrant area. Mild guarding. No rebound. No peritoneal signs. Extremities: No clubbing, cyanosis, or edema. 2+ pulses. NEURO: Alert and oriented x3. Grossly nonfocal. 5/5 motor strength. Sensation intact to light touch. Laboratory Data: The patient has a white count of 8.7, down from 14.4 on the , hemoglobin of 12.3, hematocrit 35.5, MCV of 89, platelet count of 281, polys of 75%, lymphs 18%, monocytes 7%, eosinophils 1%. Chemistry; sodium 137, potassium 3.3, chloride 104, bicarb 29, BUN of 3, creatinine of 0.6, glucose 111, calcium is 8.1, magnesium 2.0, total bilirubin 2.3, direct bilirubin 1.4 down from 3.6 and 2.4 yesterday, AST of 44, ALT of 106, alkaline phosphatase of 177, total protein 7.6, albumin 3.0, lipase 75. UA showed 3+ sediment with less than 20 bacteria, trace ketones, 2+ blood, negative nitrite, negative leukocyte esterase, 1+ protein. MRCP on the was negative. Repeat MRCP yesterday on the 08 of May was negative. CT scan of abdomen and pelvis revealed air fluid and blood in the gallbladder fossa, about 6 x 3 cm in size. Small amount of fluid in the dependent portion of the pelvis. The gallbladder fossa though not outside of the range for recent cholecystectomy. No abscess or bile leak suspected. Next day on the , she had CT of the chest that revealed mild dependent atelectasis in the right lung base. Pneumoperitoneum again noted status post lap taco days before. Impression: 1. Right upper quadrant and midepigastric pain possibly due to postsurgical change with extensive adhesions in the right upper quadrant that had to be taken down and possible blunt trauma there versus luminal disease such as peptic ulcer disease versus less likely choledocholithiasis with stone, with 2 negative MRCPs on April 30 and May 08. The liver numbers have improved. It appears that the ALT greater than the AST could be indicative of possible irritation from the surgical takedown of extensive adhesions with remaining fluid/inflammation on the liver. 2. History of umbilical hernia repair years ago and laparoscopic cholecystectomy on May 04, 2021. Recommendation: 1. Continue p.r.n. pain medicines and antiemetics. 2. Continue IV fluids, IV antibiotics. 3. EGD. 4. Monitor liver chemistries and other labs. 5. Consider ERCP as indicated. RANI/DEANDRE Voice ID: [id number] Report ID: [id number] MURALI
[2021-05-09] MEDS: ENOXAPARIN 40 MG/0.4 ML SQ SCH (17:00)
[2021-05-10] MEDS: ZOLPIDEM TARTRATE 5 MG TABLET PO PRN (00:22)
[2021-05-10] MEDS: HYDROCODONE/APAP 7.5/325 MG TAB PO SCH ×4 (00:22→14:19)
[2021-05-10] MEDS: PIPER/TAZO/NS 3.375gm 3.375 GM/100 ML BAG IVPB SCH ×3 (00:23→18:13)
[2021-05-10 04:04] LABS: Absolute Lymphocytes (CBC) 1.4 K/uL (0.7-4.9); Basophils % 0.1 % (0-1.3); Hematocrit 34.5 % (36.0-45.0); Lymphocytes % 12.9 % (15.3-44.8); MPV 7.9 fL (7.6-11.3); RBC Red Blood Cell Count 3.84 M/uL (3.86-4.86)
[2021-05-10 04:16] LABS: Albumin 2.8 g/dL (3.4-5.0); Bilirubin Total 1.9 mg/dL (0.2-1.0); Protein, Total 7.1 g/dL (6.4-8.2)
[2021-05-10] MEDS: Ringers Lactate 1,000 ML IV SCH (10:47)
[2021-05-10] MEDS: DOCUSATE NA 100 MG CAP PO SCH ×2 (10:47→22:28)
[2021-05-10] MEDS: HYDROMORPHONE HCL 1 MG/ML INJ IV PRN ×2 (10:54→18:13)
[2021-05-10] MEDS: ONDANSETRON 4 MG/2 ML VIAL IV PRN (11:17)
[2021-05-10] MEDS ORDERED: propofoL 200 MG/20 ML VIAL IV ONE (13:03)
[2021-05-10] MEDS ORDERED: LIDOCAINE 1% MPF 5 ML VIAL ONE (13:03)
--- NOTE | 2021-05-10 13:29 | ENDO RPT ---
[address], [address] EGD PROCEDURE REPORT EXAM DATE: 05/10/2021 PATIENT NAME: Salma Kidd MR#: [id number] BIRTHDATE: 1990 ATTENDING: Alexander Benítez Dr STATUS: inpatient - [facility] OXYGEN THERAPY TEACHER: Cayla Sneed RN and Zayra Bowling CST INDICATIONS: The patient is a 30 yr old Female here for an EGD due to right upper quadrant abdominal pain, mid epigastric abdominal pain, and nausea PROCEDURE PERFORMED: EGD with biopsy MEDICATIONS: Per Anesthesia. TOPICAL ANESTHETIC: none CONSENT: The patient understands the risks and benefits of the procedure and understands that these risks include, but are not limited to: sedation, allergic reaction, infection, perforation and/or bleeding. Alternative means of evaluation and treatment include, among others: physical exam, x-rays, and/or surgical intervention. The patient elects to proceed with this endoscopic procedure. DESCRIPTION OF PROCEDURE: During intra-op preparation period all mechanical medical equipment was checked for proper function. Hand hygiene and appropriate measures for infection prevention was taken. Procedure, possible complications, and alternatives including but not limited to the possibility of bleeding, perforation, tear, infection, sepsis, need for surgery, need for blood transfusion, and anesthesia related complications were explained to the patient. After the risks, benefits and alternatives of the procedure were thoroughly explained, Informed consent was verified, confirmed and timeout was successfully executed by the treatment team. The patient was placed in the left lateral position. The patient was anesthetized with topical anesthesia. Through the anesthetized oropharyngeal area, the scope was passed without any difficulty. The EG-[id number] ([id number]) endoscope was introduced through the mouth and advanced to the third portion of the duodenum. Retroflexed views revealed a small hiatal hernia. The gastroscope was then slowly withdrawn and removed. A small hiatal hernia was found An erosion was found in the proximal body of the stomach. Multiple biopsies were obtained and sent to pathology. ADVERSE EVENTS: There were no complications. IMPRESSIONS: 1. Small hiatal hernia 2. An erosion in the proximal body of the stomach, s/p biopsies RECOMMENDATIONS: 1. await biopsy results 2. acid suppression therapy REPEAT EXAM: Alexander Benítez Dr eSigned: Alexander Benítez Dr 05/10/2021 1:29 PM cc: Arnol Harmon CPT CODES: ICD9 CODES: PATIENT NAME: Salma Kidd MR#: [id number]
[2021-05-10] MEDS ORDERED: FENTANYL CITR 100 MCG/2 ML ONE (13:32)
[2021-05-10] MEDS: ENOXAPARIN 40 MG/0.4 ML SQ SCH (17:00)
[2021-05-11] MEDS: HYDROCODONE/APAP 7.5/325 MG TAB PO SCH ×4 (00:58→18:00)
[2021-05-11] MEDS: PIPER/TAZO/NS 3.375gm 3.375 GM/100 ML BAG IVPB SCH ×3 (00:58→17:00)
[2021-05-11] MEDS: Ringers Lactate 1,000 ML IV SCH ×3 (00:59→17:18)
[2021-05-11] MEDS: ZOLPIDEM TARTRATE 5 MG TABLET PO PRN ×2 (03:17→21:08)
[2021-05-11] MEDS: HYDROMORPHONE HCL 1 MG/ML INJ IV PRN (03:23)
[2021-05-11 07:39] LABS: Absolute Lymphocytes (CBC) 0.7 K/uL (0.7-4.9); Basophils % 0.3 % (0-1.3); Lymphocytes % 6.9 % (15.3-44.8); MPV 7.1 fL (7.6-11.3); RBC Red Blood Cell Count 3.93 M/uL (3.86-4.86)
[2021-05-11 08:52] LABS: Albumin 2.7 g/dL (3.4-5.0); Bilirubin Direct 0.9 mg/dL (0-0.2); Bilirubin Total 1.4 mg/dL (0.2-1.0); Protein, Total 7.3 g/dL (6.4-8.2)
[2021-05-11] MEDS: DOCUSATE NA 100 MG CAP PO SCH ×2 (09:00→21:03)
[2021-05-11] MEDS ORDERED: FENTANYL 75 MCG/PATCH TD SCH (09:00)
[2021-05-11] MEDS: PANTOPRAZOLE 40 MG INJ IVP SCH ×2 (09:00→21:03)
[2021-05-11 09:35] LABS: Platelet Estimate ADEQ
[2021-05-11 09:36] LABS: Blood Morphology Comment NOT SEEN (NOT SEEN)
[2021-05-11] MEDS: FENTANYL 75 MCG/PATCH TD SCH (10:00)
--- NOTE | 2021-05-11 13:19 | PN ---
Please note, I evaluated her yesterday on the computer which she was getting an endoscopy at the time when I went to see her. Did come by later and talked to her. However, I did not dictate a note yes terday, so this note today that I am dictating will cover both days. Essentially, the patient's LFTs were improving yesterday. She underwent an EGD and it showed minimal findings to explain the patien t's pain. So, it showed basically small hiatal hernia and erosion in the proximal body of the stomac h. No other findings. We ordered a HIDA scan, which was done this morning to rule out a bile leak. She has free flow of bile from the liver to the small intestine, but there is small pooling at the g allbladder fossa and there is no fluid anywhere else. So the consideration is that it might be a shan t of L[place]ch[place] leak rather than a cystic duct leak. Regardless, the patient is going to require ERCP a nd stent placement and Dr. Benítez already arranged for that to occur later today. The patient actual ly feels a little bit better today. Pain is controlled. Her vitals are stable. She is afebrile. Laboratory Data: Reviewed. White count is normal. There is a left shift and her total bilirubin is down to 1.4, direct bilirubin is 0.9, her AST is 38, ALT is 83. Alkaline phosphatase is still sligh tly elevated at 256. Abdomen is benign. Assessment: Status post lap cholecystectomy with bile leak. Recommendations: ERCP and stent. Continue IV antibiotics, parenteral pain management. After the st ent is placed, hopefully discharge in 24 to 48 hours, once the pain is controlled on oral medications . /MODL Voice ID: [id number] Report ID: [id number]
[2021-05-11] MEDS ORDERED: propofoL 200 MG/20 ML VIAL IV ONE (14:02)
[2021-05-11] MEDS ORDERED: LIDOCAINE 1% MPF 5 ML VIAL ONE (14:02)
[2021-05-11] MEDS ORDERED: FENTANYL CITR 100 MCG/2 ML ONE (14:02)
[2021-05-11] MEDS ORDERED: GLUCAGON 1 MG/VIAL ONE (14:05)
[2021-05-11] MEDS ORDERED: GENTAMICIN SULF 80 MG/2ML INJ ONE (14:05)
--- NOTE | 2021-05-11 14:53 | ENDO RPT ---
[address], [address] ERCP PROCEDURE REPORT EXAM DATE: 05/11/2021 PATIENT NAME: Salma Kidd MR #: [id number] BIRTHDATE: 1990 ATTENDING: Alexander Benítez Dr STATUS: outpatient LIABILITY CLAIMS MANAGER: Cayla Sneed RN, Zayra Bowling CST, and Shira MESAA INDICATIONS: The patient is a 30 yr old Female here for an ERCP due to bile duct leak, abnormal imaging (HIDA scan today revealed bile duct leak - possibly Luschka duct), abnormal Liver Function Tests, and RUQ/KYM abdominal pain PROCEDURE PERFORMED: ERCP with sphincterotomy and ERCP with stent placement MEDICATIONS: Per Anesthesia. CONSENT: The patient understands the risks and benefits of the procedure and understands that these risks include, but are not limited to: sedation, allergic reaction, infection, perforation and/or bleeding. Alternative means of evaluation and treatment include, among others: physical exam, x-rays, and/or surgical intervention. The patient elects to proceed with this endoscopic procedure. DESCRIPTION OF PROCEDURE: During intra-op preparation period all mechanical medical equipment was checked for proper function. Hand hygiene and appropriate measures for infection prevention was taken. Procedure, possible complications, and alternatives including but not limited to the possibility of bleeding, perforation, tear, infection, sepsis, need for surgery, need for blood transfusion, and anesthesia related complications were explained to the patient. In addition, 5-30% incidence of acute pancreatitis as a result of ERCP were explained. After the risks, benefits and alternatives of the procedure were thoroughly explained, Informed was verified, confirmed and timeout was successfully executed by the treatment team. With the patient in left semi-prone position, medications were administered intravenously.The [id number] ([id number]) was passed from the mouth into the esophagus and further advanced from the esophagus into the stomach. From stomach scope was directed to the second portion of the duodenum. Major papilla was aligned with the duodenoscope. The scope position was confirmed fluoroscopically. Rest of the findings/therapeutics are given below. The scope was then completely withdrawn from the patient and the procedure completed. The pulse, BP, and O2 saturation were monitored and documented by the physician and the nursing staff throughout the entire procedure. The patient was cared for as planned according to standard protocol. The patient was then discharged to recovery in stable condition and with appropriate post procedure care. Filling defect / contrast extravasation was noted in the gallbladder fossa / duct of Luschka area; sphincterotomy perfomed, and 7-5 plastic biliary stent placed. Otherwise, cannulation of the common bile duct was accomplished. The common bile duct and intrahepatics were normal without strictures, or stones. Small amount of bile fluid noted exiting ampulla before sphincterotomy and stent placement. Gastritis noted in the stomach antrum. ADVERSE EVENT: none IMPRESSIONS: 1. Filling defect / contrast extravasation was noted in the gallbladder fossa / duct of L[place]chka area 3. Otherwise, cannulation of the common bile duct was accomplished. The common bile duct and intrahepatics were normal without strictures, or stones. 4. Gastritis noted in the stomach antrum (previous biopsies with EGD days ago) RECOMMENDATIONS: 1. antibiotics 2. await biopsy results REPEAT EXAM: Return in 4 week(s) for ERCP. Alexander Benítez Dr eSigned: Alexander Benítez Dr 05/11/2021 2:52 PM cc: Arnol Harmon M.D. CPT CODES: ICD9 CODES: PATIENT NAME: Salma Kidd MR#: [id number]
[2021-05-11] MEDS ORDERED: Ringers Lactate 1,000 ML IV ONE (14:57)
--- NOTE | 2021-05-11 15:20 | RAD REPORT ---
EXAM DESCRIPTION: RADFluoroscopy ERCP05/11/2021 2:52 pm CLINICAL HISTORY: Abdominal pain FINDINGS: The examination was performed by Dr. Benítez.. The common bile duct was cannulated and con trast administered. A filling defect within the biliary tree is not seen. Subsequently a stent was placed 4 fluoroscopic spot images obtained. The fluoroscopy time 1.2 minutes
[2021-05-11] MEDS: Levofloxacin500mg IV 500 MG/100 ML BAG IV SCH (18:55)
[2021-05-11] MEDS: ONDANSETRON 4 MG/2 ML VIAL IV PRN (19:39)
[2021-05-11] MEDS: SODIUM CHLORIDE 0.9% 10ML INJ IV PRN (21:03)
[2021-05-12] MEDS: HYDROCODONE/APAP 7.5/325 MG TAB PO SCH ×5 (01:47→18:00)
[2021-05-12] MEDS: PIPER/TAZO/NS 3.375gm 3.375 GM/100 ML BAG IVPB SCH ×3 (01:48→16:36)
[2021-05-12 04:27] LABS: Absolute Lymphocytes (CBC) 1.4 K/uL (0.7-4.9); Basophils % 0.2 % (0-1.3); Hematocrit 30.3 % (36.0-45.0); Lymphocytes % 17.5 % (15.3-44.8); MPV 7.3 fL (7.6-11.3); RBC Red Blood Cell Count 3.38 M/uL (3.86-4.86)
[2021-05-12 04:37] LABS: BUN Blood Urea Nitrogen 6 mg/dL (7-18); Bicarbonate 29 mmol/L (21-32); Glucose Level 71 mg/dL (74-106); Lipase 56 U/L (73-393); Magnesium 1.7 mg/dL (1.8-2.4); Phosphorus 2.8 mg/dL (2.5-4.9); Potassium 3.2 mmol/L (3.5-5.1); Sodium Level 136 mmol/L (136-145)
[2021-05-12 04:42] LABS: Albumin 2.5 g/dL (3.4-5.0); Bilirubin Direct 0.6 mg/dL (0-0.2); Bilirubin Total 1.3 mg/dL (0.2-1.0); Protein, Total 6.3 g/dL (6.4-8.2)
[2021-05-12] MEDS: HYDROMORPHONE HCL 1 MG/ML INJ IV PRN (06:54)
[2021-05-12] MEDS: DOCUSATE NA 100 MG CAP PO SCH ×2 (10:03→20:47)
[2021-05-12] MEDS: PANTOPRAZOLE 40 MG INJ IVP SCH ×2 (10:03→22:02)
--- NOTE | 2021-05-12 11:33 | PN ---
Date of Progress Note: 05/12/2021 Subjective: Patient is awake, alert, and feels a little better, but still requiring parenteral pain management. No diffuse abdominal pain. She is complaining more of right shoulder pain. Prior to re ferred pain from the irritation of the diaphragm, from the small bile leak that she has. She had an ERCP yesterday and a stent placed without incident. Vitals are stable. She is afebrile. Laboratory Data: Reviewed. Her white count is normal. There is no left shift. LFTs are still impr oving. Her abdomen is benign. Assessment: Status post laparoscopic cholecystectomy, bile leak, and status post endoscopic retrogra de cholangiopancreatography. Recommendations: Will begin diet with clear liquids. Advance slowly as tolerated. GI saw. Continu e parenteral pain management. When the pain is controlled on oral pain medication, she will be disch arged home with oral antibiotics. Plan of care discussed in detail with the patient with a translato r and all questions answered. /MODL Voice ID: [id number] Report ID: [id number]
[2021-05-12] MEDS: Ringers Lactate 1,000 ML IV SCH (15:48)
[2021-05-12] MEDS: Levofloxacin500mg IV 500 MG/100 ML BAG IV SCH (16:36)
[2021-05-12] MEDS: SODIUM CHLORIDE 0.9% 10ML INJ IV PRN (22:03)
--- NOTE | 2021-05-12 22:10 | P.PN ---
Subjective Date of Service: 05/12/21 Chief Complaint: RUQ/KYM pain, nausea, abn CT & HIDA, bile duct leak - [place] Subjective: Improving (Feels better today, s/p ERCP with biliary stent placement yesterday. Finally out of bed and ambulating in hallway today. Pain level markedly decreased: even had significant pain with Fentanyl 75 mcg patch before ERCP yesterday - now much improved it appears. Tolerating CLs today. Improved liver #s) Physical Examination - Vital Signs Temperature: 97.7 F Blood Pressure: 117/58 Pulse: 78 Respirations: 17 Pulse Ox (%): 94 Assessment And Plan - Current Problems (Diagnosis) (1) RUQ abdominal pain Current Visit: Yes Status: Acute (2) Epigastric abdominal pain Current Visit: Yes Status: Acute (3) Nausea Current Visit: Yes Status: Acute (4) Abnormal CT of the abdomen Current Visit: Yes Status: Acute (5) Abnormal biliary HIDA scan Current Visit: Yes Status: Acute (6) Bile duct leak Current Visit: Yes Status: Acute Comment: duct of [place] - Plan REC: 1) continue IV antibiotics, double coverage for GN bacteria 2) agree with advance in diet 3) monitor labs 4) ERCP in 3-4 weeks for biliary stent removal
[2021-05-13] MEDS: ZOLPIDEM TARTRATE 5 MG TABLET PO PRN (00:33)
[2021-05-13] MEDS: HYDROCODONE/APAP 7.5/325 MG TAB PO SCH ×4 (00:33→17:56)
[2021-05-13] MEDS: PIPER/TAZO/NS 3.375gm 3.375 GM/100 ML BAG IVPB SCH ×3 (00:35→16:16)
[2021-05-13] MEDS: Ringers Lactate 1,000 ML IV SCH ×3 (01:48→21:48)
[2021-05-13 05:56] LABS: Absolute Lymphocytes (CBC) 1.7 K/uL (0.7-4.9); Basophils % 0.5 % (0-1.3); Hematocrit 29.7 % (36.0-45.0); Lymphocytes % 23.6 % (15.3-44.8); MPV 7.4 fL (7.6-11.3); RBC Red Blood Cell Count 3.32 M/uL (3.86-4.86)
[2021-05-13 06:09] LABS: Albumin 2.6 g/dL (3.4-5.0); Bilirubin Direct 0.6 mg/dL (0-0.2); Bilirubin Total 0.9 mg/dL (0.2-1.0); Protein, Total 6.6 g/dL (6.4-8.2)
[2021-05-13] MEDS: PANTOPRAZOLE 40 MG INJ IVP SCH ×2 (08:52→20:48)
[2021-05-13] MEDS: DOCUSATE NA 100 MG CAP PO SCH ×2 (08:52→20:48)
--- NOTE | 2021-05-13 10:13 | PN ---
Date of Progress Note: 05/13/2021 Subjective: Patient is awake, alert, tolerating her diet. The pain is much better, ambulating, had a bowel movement yesterday. Objective: Vital Signs: Stable. Afebrile. Abdomen: Benign. Laboratory Data: Reviewed. White count is normal. There is no left shift. LFTs have normalized ex cept for the alkaline phosphatase being slightly up. Assessment: Status post laparoscopic cholecystectomy. Status post endoscopic retrograde cholangiopa ncreatography for duct of Luschka bile leak. Recommendations: Continue IV antibiotics. Advance diet as tolerated. Encourage ambulation and teresa ntive spirometry. Discharge tomorrow. /MODL Voice ID: [id number] Report ID: [id number]
--- NOTE | 2021-05-13 14:39 | P.PN ---
Subjective Date of Service: 05/13/21 Chief Complaint: RUQ/KYM pain, nausea, abn CT & HIDA, bile duct leak - [place] Subjective: Improving (Improving. No pain medications today. Tolerating [place] diet.) Physical Examination - Vital Signs Temperature: 97.1 F Blood Pressure: 103/59 Pulse: 66 Respirations: 16 Pulse Ox (%): 95 Assessment And Plan - Current Problems (Diagnosis) (1) RUQ abdominal pain Current Visit: Yes Status: Acute (2) Epigastric abdominal pain Current Visit: Yes Status: Acute (3) Nausea Current Visit: Yes Status: Acute (4) Abnormal CT of the abdomen Current Visit: Yes Status: Acute (5) Abnormal biliary HIDA scan Current Visit: Yes Status: Acute (6) Bile duct leak Current Visit: Yes Status: Acute Comment: duct of [place]chka - Plan REC: 1) continue IV antibiotics, double coverage for GN bacteria 2) agree with advance in diet 3) monitor labs 4) ERCP in 3-4 weeks for biliary stent removal
[2021-05-13] MEDS: Levofloxacin500mg IV 500 MG/100 ML BAG IV SCH (16:15)
[2021-05-14] MEDS: PIPER/TAZO/NS 3.375gm 3.375 GM/100 ML BAG IVPB SCH ×2 (01:06→09:00)
[2021-05-14] MEDS: Ringers Lactate 1,000 ML IV SCH ×2 (01:12→07:48)
[2021-05-14] MEDS: HYDROCODONE/APAP 7.5/325 MG TAB PO SCH (01:13)
[2021-05-14 08:30] VITALS: BP 112/65; TEMP 97.6
[2021-05-14] MEDS: DOCUSATE NA 100 MG CAP PO SCH (09:00)
[2021-05-14] MEDS: FENTANYL 75 MCG/PATCH TD SCH (09:00)
[2021-05-14] MEDS: PANTOPRAZOLE 40 MG INJ IVP SCH (09:00)
[2021-05-14 09:14] VITALS: O2SAT 97
--- NOTE | 2021-05-14 10:03 | RAD REPORT ---
EXAM DESCRIPTION: NM - Hepatobiliary System Imagin - 05/11/2021 7:19 am CLINICAL HISTORY: R/O Bile like COMPARISON: No comparisons TECHNIQUE: The patient was administered approximately 7 mCi Tc99m Choletec. Imaging of the right upp er quadrant was performed initially for up to 60 minutes. FINDINGS: There is prompt uptake of radiotracer within the liver. There is lack of uptake at the gal lbladder fossa on the initial images. There is normal visualization of the common hepatic duct and th e small bowel. There is tracer buildup in the region of the gallbladder fossa as the exam progressed. This is non free-flowing. IMPRESSION: Radiotracer accumulation in the gallbladder fossa consistent with a presumably contained bile leak into the gallbladder fossa fluid collection.
--- NOTE | 2021-05-14 10:11 | DS ---
Date of Discharge: 05/14/2021 Admitting Diagnoses: Abdominal pain, chest pain, status post laparoscopic cholecystectomy. Discharge Diagnoses: Abdominal pain, chest pain, status post laparoscopic cholecystectomy, and bile leak. Procedure Performed: ERCP. Hospital Course: The patient is a 30-year-old female, presented 2 days after undergoing uneventful l aparoscopic cholecystectomy for badly inflamed gallbladder with extensive adhesions with abdominal pa in. She had a CAT scan done, which showed a little bit of fluid in the gallbladder fossa. Her LFTs were essentially within normal limits at that time, slight elevation, nothing unusual following the g allbladder surgery. She was admitted. Antibiotics were restarted. Parenteral pain management was b egun and she started having some pain in the epigastrium, lower chest region. A thorax CT was done t o rule out PE. MRCP was done the next day as she continued to have pain, which did not show any fill ing defects in the common bile duct and there was no significant change in the fluid in the gallbladd er fossa; however, pain continued. Dr. Benítez was consulted. He performed an EGD, which was essenti ally unremarkable. We did not have explanation for this patient's pain. I went ahead and ordered a HIDA scan, which showed a small leak, possibly duct of Luschka leak from the gallbladder fossa. The patient following which underwent an ERCP with stent placement on Friday and post placement she slowl y improved, her pain controlled on oral medication. She is tolerating a diet, ambulating, she is afe brile, and therefore the patient will be discharged to home. Disposition: Home. Condition: Stable. Discharge Instructions: Resume home medications and diet. Activity as tolerated. No heavy lifting. Keep Steri-Strips on at all times. Follow up in my office in a week. Call for appointment. Layla w up with Dr. Benítez in 3-4 weeks for stent removal. Cipro 500 mg p.o. q.12, [place] 7.5 q.4 p.r.n. pain. /MODL Voice ID: [id number] Report ID: [id number]
== END 2021-05-14 11:00 | disposition home or self-care (01) | DRG 446 ==
LOC: ER 10:15 → ERHOLD 14:45 → 2ND 05-07 15:56 → OBSVTOIN 05-07 16:17
PROVIDERS: ADMIT Surgery; ATTEND Surgery
PROC: 0DB68ZX Excision of Stomach, Via Natural or Artificial Opening Endoscopic, Diagnostic (ICD-10-PCS; principal; 2021-05-10 17:30)
PROC: 0F798DZ Dilation of Common Bile Duct with Intraluminal Device, Via Natural or Artificial Opening Endoscopic (ICD-10-PCS; 2021-05-11)
DX: K83.8 Other specified diseases of biliary tract (principal); R10.9 Unspecified abdominal pain; R07.9 Chest pain, unspecified; R93.2 Abnormal findings on diagnostic imaging of liver and biliary tract; K29.70 Gastritis, unspecified, without bleeding; K44.9 Diaphragmatic hernia without obstruction or gangrene; K25.9 Gastric ulcer, unspecified as acute or chronic, without hemorrhage or perforation; R79.89 Other specified abnormal findings of blood chemistry; Z90.49 Acquired absence of other specified parts of digestive tract
CPT/HCPCS: 36415; 71275; 74177; 74181; 78226; 80048; 80076; 81003; 81015; 81025; 82565; 83690; 83735; 84100; 85025; 88305; 88312; 94010; 96361; 96374; 96375; 97116; 97161; 97530; 99284; A9537; C2625; C9113; G0378; J1170; J1580; J1610; J1650; J2405; J2543; J2550; J2704; J3010; J7030; J7120; J7799; Q9967